=== PATIENT | female | born 1945 | race Caucasian/White ===

== ENCOUNTER 2017-07-17 13:28 | Inpatient (IN) | payer MEDICARE, SELFPAY ==
[~2017-07-17] VITALS: Ht 152.4 cm; Wt 99.3 kg
[~2017-07-17 13:28] MED LIST: CIPRO500 MG PO; LISINOPRIL-HCT1 EAC1 PO; METRONIDAZOLE500 MG PO; OXYBUTYNIN CHLOR5 MG PO
[2017-08-25] MEDS ORDERED: TYLENOL325 MG PO (11:21)
[2017-08-25] MEDS ORDERED: CODEINE SULFATE15 MG PO (11:21)
[2017-08-25] MEDS ORDERED: LOPERAMIDE2 M1 PO (11:21)
[2017-08-25] MEDS ORDERED: LASIX20 MG PO (11:22)
[2017-08-25] MEDS ORDERED: LISINOPRIL20 MG PO (11:22)
[2017-08-25] MEDS ORDERED: OXYBUTYNIN CHLOR5 MG PO (11:22)
[2017-08-25] MEDS ORDERED: POTASSIUM20 MEQ/15 PO (11:23)
--- NOTE | 2017-08-31 11:01 | OR ---
[facility] [address] [place], [place] [address] Signed DATE OF OPERATION: 08/31/2017 SURGEON: Josey Alberto MD PREOPERATIVE DIAGNOSIS: Degenerative joint disease, right knee. POSTOPERATIVE DIAGNOSIS: Degenerative joint disease, right knee. PROCEDURE PERFORMED: Right total knee arthroplasty with computer navigation. HAM BONER: KRYSTINA Newman was present in critical for positioning, retraction, and wound closure. ANESTHESIA: General. TOURNIQUET TIME: Approximately 66 minutes. IMPLANTS: [place] Triathlon size 4 femur, size 3 tibia, 16 mm insert, and 32 mm patella. BRIEF HISTORY: Joshua is a 72-year-old female with progressive worsening of arthritis that was significantly erosive medially. Risks and benefits of operative treatment were discussed with her. DESCRIPTION OF PROCEDURE: Once medical clearance was obtained, she was taken to the operating room. After adequate anesthesia, the par conference was performed. The right leg was placed in well padded proximal thigh tourniquet placed on the hip bump. The leg was prepped and draped in a standard sterile fashion and exsanguinated using Esmarch bandage. Tourniquet was inflated to 300 mmHg. Standard anterior approach was taken through the skin and subcutaneous tissue, and median parapatellar arthrotomy was performed. The infrapatellar fat pad was excised and the MCL was elevated to sleeve around the Electronically Signed By: JOSEY ALBERTO MD 08/31/17 1101 PATIENT NAME: JOSHUA LEWIS OPERATIVE REPORT DATE OF : 49 PHYSICIAN: JOSEY ALBERTO MD REPORT #: [id number] REPORT IS CONFIDENTIAL AND NOT TO BE RELEASED WITHOUT AUTHORIZATION [facility] [address] [place], [place] [address] Signed posterior medial corner. The menisci were removed. The PCL was found to be intact and the ACL was absent. The knee was flexed. The navigation guide was pinned to the distal femur and the femur was registered with the computer. The distal femoral cutting guide was then pinned in neutral alignment and the distal femoral cut was made. The osteophytes were removed. The femoral rotation was set on the epicondylar axis and the AP cutting block was pinned in alignment. The anterior-posterior and chamfer cuts were made. The attention was turned to proximal femur and the navigation guide was pinned and again the tibia was registered with the computer. The cutting block was then pinned in neutral alignment and the proximal tibia was cut to take about a millimeter off the medial surface. There was still a fairly large cut laterally. The bone was excised as were any meniscal remnants. Posterior release was performed off the femur. Posterior osteophytes removed. The flexion and extension gaps were sized and found to be symmetric at 16 mm. The trials were positioned. Knee was taken through range of motion and found to be stable. The patella was cut, sized, and drilled for a 32 patella. The trials were removed after drilling the femur. The tibia was then finished using the keel punch. The bone surfaces were pulse lavaged, packed with dry Ray-Jodi. The cement was mixed and reached proper consistency, and placed on all implants and all bone surfaces. Tibia was impacted in position first followed by the femur. Polyethylene was placed on the tibia and the knee was extended and nicely loaded. All excess cement was removed as we went. The patella was clamped into position. Again, all excess cement was removed. The cement was allowed to harden for 15 minutes. The knee was then flexed and the remaining cement was removed using osteotomes. The knee was pulse lavaged at intervals throughout the procedure using 3 L of antibiotic irrigation. The periarticular soft tissues were injected with 100 mL of ropivacaine and Toradol mixture. The arthrotomy was then closed using #2 Stratafix, subcutaneous tissue with 2-0 Monocryl and 0 Stratafix, and skin with carlos. Wound was dressed with Mepilex Ag dressing, ABD, and Adi wrap. She was awakened and taken to recovery room in satisfactory condition. All sponge, needle, and instrument counts were correct. Josey Alberto MD BA/MODL /[id number] Electronically Signed By: JOSEY ALBERTO MD 08/31/17 1101 PATIENT NAME: JOSHUA LEWIS OPERATIVE REPORT DATE OF : 49 PHYSICIAN: JOSEY ALBERTO MD REPORT #: [id number] REPORT IS CONFIDENTIAL AND NOT TO BE RELEASED WITHOUT AUTHORIZATION
[2017-09-01] MEDS ORDERED: MUPIROCIN22 GM TOP (10:07)
[2017-09-01] MEDS ORDERED: BACTRIM DS TAB1 EACH PO (10:07)
[2017-09-01] MEDS ORDERED: CENTRUM SILVER1 EAC3 PO (10:22)
[2017-09-04] MEDS ORDERED: HYDROMORPHONE HC4 MG PO (07:39)
[2017-09-04] MEDS ORDERED: XARELTO10 MG PO (07:39)
[2017-09-04] MEDS ORDERED: OXYCODONE HCL5 MG PO (07:39)
--- NOTE | 2017-09-04 14:45 | DS ---
[facility] [address] [place], [place] [address] Signed ADMISSION DATE: 08/31/2017 DISCHARGE DATE: 09/04/2017 ADMISSION DIAGNOSIS: Degenerative joint disease, right knee. DISCHARGE DIAGNOSES: 1. Degenerative joint disease, right knee. 2. Postoperative hyponatremia. PROCEDURE PERFORMED: During this hospitalization, right total knee replacement. BRIEF HISTORY: Joshua is a 72-year-old female with progressive worsening of severe arthritis and erosion. Risks, benefits and alternatives to the surgery were discussed with her and she elected to proceed. Once consent was obtained, she was taken to the operating room and after adequate anesthesia, she underwent the above-named procedure. She tolerated this well and was taken to the recovery room and subsequently to the orthopedic floor. She was placed on oxycodone and hydromorphone for postoperative pain in addition to Tylenol. She was initially placed on Celebrex, however, when her hyponatremia became apparent, the Celebrex was stopped. She had good pain relief on the above medications. She was seen by Physical Therapy and although a little bit slow in the beginning to progression, she did do quite well after that. She was able to go up and down the hallway and up and down the stairs by the day of discharge. She is able to get herself in and out of bed with minimal assist. She was felt to be stable to go home with physical therapy on an outpatient basis. The hyponatremia resolved with fluid restrictions and was almost normalized by the day of discharge. She will need to follow up with Dr. Douglass for the hyponatremia in the next couple of weeks I suspect. I did advise her to restrict her p.o. water intake while at home until she sees Dr. Douglass. She will follow up with me in 10-14 days as previously scheduled. Should she have any problems or interruption, notify me immediately. Josey Alberto MD /MOD /[id number] Electronically Signed By: JOSEY ALBERTO MD 09/04/17 1445 PATIENT NAME: JOSHUA LEWIS DISCHARGE SUMMARY DATE OF : 49 PHYSICIAN: JOSEY ALBERTO MD REPORT #: [id number] REPORT IS CONFIDENTIAL AND NOT TO BE RELEASED WITHOUT AUTHORIZATION [address] [place] [address] Signed Electronically Signed By: JOSEY ALBERTO MD 09/04/17 1445 PATIENT NAME: JOSHUA LEWIS DISCHARGE SUMMARY DATE OF : 49 PHYSICIAN: JOSEY ALBERTO MD REPORT #: [id number] REPORT IS CONFIDENTIAL AND NOT TO BE RELEASED WITHOUT AUTHORIZATION
== END 2017-09-04 11:30 | disposition home or self-care (01) | DRG 470 ==
LOC: MS 08-31 05:45 → DSVR 08-31 05:45 → MS 08-31 06:45
PROVIDERS: ADMIT Specialist
PROC: 3E0T3BZ Introduction of Anesthetic Agent into Peripheral Nerves and Plexi, Percutaneous Approach (ICD-10-PCS; 2017-08-31)
PROC: 3E0T33Z Introduction of Anti-inflammatory into Peripheral Nerves and Plexi, Percutaneous Approach (ICD-10-PCS; 2017-08-31)
PROC: 0SRC0J9 Replacement of Right Knee Joint with Synthetic Substitute, Cemented, Open Approach (ICD-10-PCS; principal; 2017-08-31 06:45)
DX: M17.11 Unilateral primary osteoarthritis, right knee (principal); E87.1 Hypo-osmolality and hyponatremia; N39.0 Urinary tract infection, site not specified; G89.18 Other acute postprocedural pain; B96.20 Unspecified Escherichia coli [E. coli] as the cause of diseases classified elsewhere; I10 Essential (primary) hypertension; Z88.0 Allergy status to penicillin
CPT/HCPCS: 01402; 36415; 64447; 64450; 76942; 80048; 83880; 83930; 83935; 84133; 84300; 84550; 85025; 94640; 94667; 94668; 94760; 97110; 97116; 97162; 97165; 97530; 97535; C1713; C1776; G8978; G8979; G8987; G8988; J0330; J0690; J1100; J1170; J2250; J2274; J2704; J2795; J3010; J3370; J7030; J7120

== ENCOUNTER 2017-12-21 06:55 | Inpatient (IN) | payer MEDICARE, OTHER ==
--- NOTE | 2017-12-07 14:32 | NUR ---
PATIENT HERE TODAY FOR PREADMIT APPOINTMENT. SHE IS SCHEDULED FOR SURGERY ON 12/21/17. SHE STATES SHE HAD A JOINT REPLACMENT IN AUGUST AND STILL HAS HER WALKER, CANE AND SHOWER BENCH. HER DAUGHTER WAS WITH HER TODAY AND STATES SHE WILL BE STAYING WITH THEM AGAIN AFTER SURGERY. SHE JUST FINISHED WITH PHYSICAL THERAPY AND WOULD LIKE TO GO BACK TO THE [facility] AFTER THIS SURGERY. THIS INFORMATION WILL BE SENT TO DR GARCIA OFFICE AND CT PLANNING FOR FURTHER FOLLOW UP.
[~2017-12-21] VITALS: Ht 152.4 cm; Wt 107.0 kg
[~2017-12-21 06:55] MED LIST changes: +BACTRIM DS TAB1 EACH PO; +CENTRUM SILVER1 EAC3 PO; +CODEINE SULFATE15 MG PO; +HYDROMORPHONE HC4 MG PO; +LASIX20 MG PO; +LISINOPRIL20 MG PO; +LOPERAMIDE2 M1 PO; +MUPIROCIN22 GM TOP; +OXYCODONE HCL5 MG PO; +POTASSIUM20 MEQ/15 PO; +TYLENOL325 MG PO; +XARELTO10 MG PO
--- NOTE | 2017-12-21 11:18 | NUR ---
12/21/17 1118 Madeline Mcknight 1037 PT ARRIVED SNORING WITH SEE-SAW BREATHING. POLICY CHANGE CLERKS SUPERVISOR PLACED ORAL AIRWAY. SNORING STOPPED. PT ON 10L VIA MASK. PT NONAROUSABLE. 1049 PT WOKE UP AND ORAL AIRWAY REMOVED, O2 DECREASED TO 8L VIA MASK. PT ENCOURAGED TO DEEP BREATH. 1100 PT TALKING OFF AND ON, PT VERY DROWSY AND CONFUSED. PT REORIENTED TO PACU. PT OPENED EYES OFF AND ON. O2 DECREASED TO 6L VIA MASK, 1105 O2 MASK REMOVED. [address] ON PT AT 2L, O2 SAT DECREASED TO 90% ON RA. PT LESS CONFUSED AND DEEP BREATHING AND TRYING TO COUGH.
--- NOTE | 2017-12-21 12:39 | NUR ---
PT ARRIVED FROM PACU. PT DROWSY BUT RESPONDING TO QUESTIONS. PT DAUGHTER AT BEDSIDE. SCD'S, ЕЛЕНА HOSE, HEEL PROTECTORS, CRYO CUFF IN PLACE. PT DENIES NAUSEA. PT NODS YES TO WHEN ASKED IF SHE HAS PAIN BUT IMMIDIALY FALLS BACK TO SLEEP, RR = 16, AND IS UNABLE TO STATE WHERE OR GIVE A PAIN SCORE. PT APPEARS COMFORTABLE AT THIS TIME. VITALS TAKEN. MD NOTIFIED OF BLOOD PRESSURE STATUS. PT DAUGHTER UPDATED ON PLAN OF CARE. BED RAILSUP. CALL LIGHT WITHIN REACH.
--- NOTE | 2017-12-21 13:10 | NUR ---
VITALS DUE. VITALS TAKEN. PT CONTINUES TO BE DROWSY. MEDICATION GIVEN ORDERED (SEE MAR), PHARMACIST CONSULTED REGARDING RATE AND FLUSHING. BED RAILS UP. CALL LIGHT WITH IN REACH. BED RAILS UP.
--- NOTE | 2017-12-21 14:06 | NUR ---
PT IN RM, WITH CRYOCUFF ON, SLEEPING. DID NOT WANT TO DISTURB. WILL CONTINUE TO FOLLOW NEEDED
--- NOTE | 2017-12-21 14:24 | NUR ---
PT AWAKENS TO TOUCH AND SOUND FOR SMALL DURATION AND FALLS BACK ASLEEP. O2 95% ON 2L 02 VIA NC.
[2017-12-21] MEDS ORDERED: NARCAN4 MG NAS (15:03)
--- NOTE | 2017-12-21 15:15 | NUR ---
THIS RN TO ROOM FOR VITALS AND MEDICATIONS. PT WORKING WITH PHYSICAL THERAPY. PHYSICAL THERAPIST AND 2 RN ASSIST HELP PT TO COMODE. PT ABLE TO VOID. PT HAVING DIFFICULTY FOLLOWING COMMANDS, STILL VERY DROWSY, COMPLAINTS OF DIZZINESS. FALLS ASLEEP QUICKLY. PT BECOMS NAUSEAOUS WHILE MOVING, BEGINS TO VOMIT. MD CALLED. TELEPHONE ORDER FOR ZOFRAN GIVEN. ZOFRAN GIVEN TO PT. LINENS CHANGED. PT ASSISTED BACK TO BED. DEPENDS IN PLACE. MEDICATIONS GIVEN. ASSESSMENT DONE. PTS DAUGHTER TO BEDSIDE (WITH DOG FROM HOME). PT AND DAUGHTER VERBALIZE UNDERSTANDING. VITALS TAKEN. MD NOTIFIED OF CONTINUED HIGH BLOOD PRESSURE. BED RAILS UP. CALL LIGHT WITHIN REACH.
--- NOTE | 2017-12-21 16:16 | NUR ---
PATIENT RESTING IN BED WITH EYES CLOSED. FRESH ICE WATER GIVEN. ICE IN CRYO. CALL BUTTON IN REACH.
--- NOTE | 2017-12-21 16:57 | NUR ---
MEDICATION AND AFTERNOON ASSESSMENT DUE. THIS RN TO BEDSIDE. PT RESTING WITH EYES CLOSED, RR = 18 BPM. PT AWAKENS TO VOICE AND GENTAL SHAKE. PT ABLE TO TAKE MEDICATION (SEE MAR). PT IS UPSET ABOUT BEING "SO SLEEPY, I WASN'T LIKE THIS LAST TIME." ASSESSMENT DONE. PT FALLS IMMIDATLY BACK TO SLEEP, RR = 18 BPM. BED RAILS UP. CALL LIGTH WITHIN REACH.
--- NOTE | 2017-12-21 17:14 | OR ---
[facility] [address] [place], [place] [address] Signed DATE OF OPERATION: 12/21/2017 SURGEON: Josey Alberto MD PREOPERATIVE DIAGNOSIS: Degenerative joint disease, left knee. POSTOPERATIVE DIAGNOSIS: Degenerative joint disease, left knee. PROCEDURE PERFORMED: Left total knee arthroplasty with computer navigation. PLASTIC SURGERY MANAGER: None. TOURNIQUET TIME: 70 minutes. ANESTHESIA: General with block. IMPLANTS: [place] Triathlon size 4 femur, 3 tibia, 11 mm insert, and 32 patella. 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 She had undergone successful right total knee and wished to proceed with the left. Risks and benefits of operative treatment were discussed with her and she elected to proceed. DESCRIPTION OF PROCEDURE: Once consent was obtained, she was taken to the operating room. After adequate anesthesia, she was placed on operating table. All downside pressure points well padded. The leg was prepped and draped in a standard sterile fashion and exsanguinated using Esmarch bandage and tourniquet inflated to 275 mmHg. Standard anterior approach through curved incision was taken through skin and subcutaneous tissue. Median parapatellar arthrotomy was performed. The infrapatellar fat pad was excised and the MCL was elevated of a sleeve around the posterior medial corner. There were extensive tibial osteophytes that were removed as well. The knee was flexed. Navigation guide was pinned to the distal femur. The femur was registered with the computer. The distal Electronically Signed By: JOSEY ALBERTO MD 12/21/17 1714 PATIENT NAME: JOSHUA LEWIS OPERATIVE REPORT DATE OF : 49 REPORT #: [id number] PHYSICIAN: JOSEY ALBERTO MD PCP: JOSE M MCLEAN MD REPORT IS CONFIDENTIAL AND NOT TO BE RELEASED WITHOUT AUTHORIZATION [facility] [address] [place], [place] [address] Signed femoral cut was then made in neutral alignment. The osteophytes were removed as we went. At this point, the [id number] cutting block was dropped and had to be re-sterilized, so we went on to the tibia. The navigation guide was pinned to the tibia and the tibia was registered with the computer. The cutting block was then pinned in alignment with most involved posteromedial corner and neutral alignment. The tibial cut was made with care taken to protect the patellar tendon and MCL. The bone was removed as were any meniscal remnants. Posterior release performed off the femur. Posterior osteophytes removed. We then cut, sized, and drilled the patella for a 32 mm patella. By this point, the block was appropriately sterilized and we went ahead and aligned with the epicondylar axis and performed the anterior, posterior, and chamfer cuts. The flexion and extension gaps were sized and found to be symmetric at 11 mm. The trials were then positioned. Knee was taken through range of motion and found to be quite stable. The femoral drill holes were made and the tibial keel punch was made and the bone surfaces were pulse lavaged, packed with dry Ray-Jodi. Cement was mixed and reached proper consistency, displaced all implants on bone surfaces. Tibia was impacted into position first followed by the femur and all excess cement was removed. The polyethylene was snapped into position. Knee was extended and nicely loaded. The patella was clamped and again any remaining excess was removed. The cement was allowed to harden. Once it was hardened sufficiently, the knee was flexed. The remaining cement was removed using osteotomes. The knee showed a range of motion 0-105 degrees of flexion. This represented thigh-heel impingement. The wound was copiously irrigated with antibiotic solution. 3 L was used under pulse lavage. The periarticular soft tissues were injected with 100 mL ropivacaine, Toradol mixture. The arthrotomy was closed using #2 Stratafix. Subcutaneous tissue with 0 Stratafix, and skin with carols. The knee was dressed with a Mepilex Ag dressing, ABD, and Adi wrap. She was awakened and taken to recovery room in satisfactory condition. All sponge, needle, and instrument counts were correct. Josey Alberto MD BA/MODL /[id number] Copies: Electronically Signed By: JOSEY ALBERTO MD 12/21/17 1714 PATIENT NAME: JOSHUA LEWIS OPERATIVE REPORT DATE OF : 49 REPORT #: [id number] PHYSICIAN: JOSEY ALBERTO MD PCP: JOSE M MCLEAN MD REPORT IS CONFIDENTIAL AND NOT TO BE RELEASED WITHOUT AUTHORIZATION [address] [address] Signed ~ Electronically Signed By: JOSEY ALBERTO MD 12/21/17 1714 PATIENT NAME: JOSHUA LEWIS OPERATIVE REPORT DATE OF : 49 REPORT #: [id number] PHYSICIAN: JOSEY ALBERTO MD PCP: JOSE M MCLEAN MD REPORT IS CONFIDENTIAL AND NOT TO BE RELEASED WITHOUT AUTHORIZATION
--- NOTE | 2017-12-21 17:34 | NUR ---
PT ARRIVED AT 1210 TODAY POST OP LEFT TKA. PT DECLINED SPINAL. KETAMINE GIVEN, SOME POST OP DELERIUM. PT REMAINS DROWSY. AWAKES TO VOICE AND GENTAL SHAKING. ELEVATED BP, HOSPITALIST AWARE, LOBETOLOL AND HYDRALAZINE GIVEN. BRET SCHEDULED FOR THIS EVENING. PT UP TO COMODE WITH PT AND 2 RN ASSIST TODAY. DEPENDS IN PLACE. NOT USING CALL LIGHT AT THIS TIME.
--- NOTE | 2017-12-21 17:35 | NUR ---
PATIENT RESTING IN BED WITH EYES CLOSED. FRESH ICE WATER GIVEN. CALL BUTTON IN REACH. ICE IN CRYO.
--- NOTE | 2017-12-21 19:56 | NUR ---
RECEIVED REPORT FROM DAY SHIFT RN. PATIENT IS RESTING IN BED WITH EYES CLOSED. PATIENT IS VERY SLEEPY. PATIENT AWKANES SLIGHTLY AND FALLS BACK ASLEEP EASILY. NO PAIN NOTED. CALL LIGHT IN REACH. BED ALARM ON FOR SAFETY.
--- NOTE | 2017-12-21 20:15 | NUR ---
PLACED A CALL TO DR GARCIA TO EXPRESS CONCERN ABOUT PATIENT BEING DROWSY. NO NEW ORDERS AT THIS TIME. CONTINUE TO MONITOR.
--- NOTE | 2017-12-21 20:40 | NUR ---
PATIENT ASSESMENT COMPLETED. PATIENTS EVENING MEDICATIONS GIVEN PER ORDER. PATIENT DENIES ANY PAIN AT THIS TIME. PATIENT IS VERY DROWSY. REQUIRES MULTIPLE TIMES OF HER NAME BEING CALLED TO RESPOND TO QUESTIONING. PATIENT ASSISTED TO THE BSC A 2PA W/FWW. PATIENT REQUIRED FREQUENT REMINDERS. PATIENT WAS ABLE TO VOID AND WAS INCONTINENT. PATIENT IS BACK IN BED RESTING. PATIENT HAS SCDS, HEEL PROTECTORS, TEDHOSE AND CRYO IN PLACE. CRYO REFILLED WITH ICE. PATIENT APPEARS TO BE MORE AWAKE AFTER ACTIVITY. PATIENT DENIES PAIN AFTER MOVEMENT. PATIENT IS VERY UPSET ABOUT BEING SO SLEEPY. EDUCATED PATIENT THAT IT IS A SIDE AFFECT AFTER SURGERY. PATIENT STATED "THIS DID NOT HAPPEN LAST TIME" PATIENT REASSURED THAT SHE WAS BEING CLOSELY MONITORED. PATIENT GIVEN JELLO PER REQUEST. NO FURTHER NEEDS NOTED. BED ALARM ON FOR SAFETY. DRESSING C/D/I. CALL LIGHT IN REACH.
--- NOTE | 2017-12-21 22:08 | NUR ---
PATIENT WAS ABLE TO EAT JELLO X1 BEFORE FALLING BACK ASLEEP. PATIENT TITRATED TO 1.5L VIA NC. PULSE OX READINGS ARE WNL. PATIENT AWOKEN TO ASK ABOUT NEEDS. PATIENT SHOOOK HER HEAD NO. CALL LIGHT IN REACH. BED ALARM ON FOR SAFETY.
--- NOTE | 2017-12-21 23:56 | NUR ---
PATIENT IS RESTING IN BED WITH EYES CLOSED. RR 15. BREATHING IS EVEN AND UNLABORED. PATIENT IS ON 1.5L VIA NC. TEDHOSE, CRYO, SCDS, AND HEEL PROTECTORS IN PLACE. CRYO HAS SUFFICIENT ICE. BED ALRM IS ON AND CALL LIGHT IN REACH.
--- NOTE | 2017-12-22 02:18 | NUR ---
PATIENT AWOKE FOR 0200 VITALS. PATIENT ASSISTED TO THE BSC A 2PA W/FWW. PATIENT IS SLOW WITH MOVEMENT BUT TOLERATED ACTIVITY WELL. PATIENT IS UPSET ABOUT BEING SO SLEEPY. PATIENT KEEPS ASKING "WHAT HAPPENED TO ME". PATIENT EDUCATED THAT THE MEDICATION THE USE TO SEDATE YOU FOR SURGERY CAN MAKE YOU SLEEPY AND CAN TAKE A WHILE TO GET OUT OF YOUR SYSTEM. PATIENT STATES "IT WASNT LIKE THIS LAST TIME, SOMEONE DID SOMETHING TO ME". ASSURED PATIENT THAT SHE IS SAFE. PATIENT ASKED TO HAVE SOMETHING TO EAT. PATIENT OFFERED JELLO AND BROTH SHE IS STILL ON A CLEAR DIET AND STAFF HAS NOT BEEN ABLE TO ADVANCE HER DIET SHE HAS BEEN SO DROWSY. PATIENT HAS ONLY EATEN ONE CUP OF JELLO. PATIENT STATED "LAST TIME WHEN I WOKE UP I HAD MILK AND COOKIES" ASSURED PATIENT THAT WE WHERE FOLLOWING THE DRS ORDERS. PATIENT GIVEN MORE JELLO. PATIENT EDUCATED THAT IF SHE WAS ABLE TO TOLERATE JELLO AND STAY AWAKE THAT STAFF WOULD BE ABLE TO ADVACE HER DIET. PATIENT VERBALIZED UNDERSTANDING. NO FURTHER NEEDS NOTED. CALL LIGHT IN REACH.
--- NOTE | 2017-12-22 04:33 | NUR ---
YPATIENT IS RESTING IN BED. PATIENTS BREATHING IS EVEN AND UNLABORED, RR 15. PULSE OX READINGS ARE WNL. CALL LIGHT IN REACH. BED ALARM IS ON.
--- NOTE | 2017-12-22 05:18 | NUR ---
PATIENT RESTED WELL THROUGHOUT THE SHIFT. PATIENTS DIET WAS ADVANCED TO REGULAR, NO NAUSEA NOTED. PATIENT IS A 2PA W/FWW TO [facility]. PAITENTS OUPUT IS QS. PATIENT HAS TEDHOSE, HEEL PROTECTORS AND SCDS TO BILAT LOWER EXT. PATIENT HAS CRYO APPLIED TO LEFT KNEE. PATIENT IS ON RA, PULSE OX IN PLACE. PATIENTS DRESSING IS C/D/I, SMALL DRAINAGE NOTED. PATIENT REMAINS DROWSY, EASY TO AWAKEN. PATIENT USES CALL LIGHT APPROPRIATELY. PATIENTS BED ALARM IS ON FOR SAFETY. PATIENT IS AAOX3 WHEN AWAKE. NO PAIN NOTED.
--- NOTE | 2017-12-22 05:58 | NUR ---
PATIENT ASSISTED TO [place] [facility] [place]. PATIENT WAS ABLE TO VOID AND HAD A BOUT OF INCONTINENCE. PATIENT IS NOW IN RECLINER RESTING. PATIENT HAS SCDS, TEDHOSE, AND HEEL PROTECTORS IN PLACE. PATIENTS RATES PAIN AT A 1/10. PATIENT DENIES THE NEED FOR PAIN MEDICATION. PATIENT GIVEN SCHEDULED 0600 MEDICATIONS PER ORDER. PATIENTS DIET IS ADVANCED TO REGULAR DIET. PATIENTS CRYO REFILLED WITH ICE. PATIENT IS MORE AWAKE THIS AM. PATIENT STILL FALLS ASLEEP EASILY. IN DEPTH CONVERSATION IS ABLE TO BE HELD WITH PATIENT. PATIENT IS AAOX3. PATIENT DENIES ANY FURTHER NEEDS. CALL LIGHT IN REACH.
--- NOTE | 2017-12-22 07:38 | NUR ---
MORNING ASSESSMENT AND MEDICATIONS DUE. THIS RN TO ROOM. PT UP TO CHAIR. RESTING WITH EYES CLOSED RR = 16 BPM. PT AWAKES TO VOICE AND GENTAL TOUCH. PT STATES "WHY AM I SO SLEEPY. I DON'T LIKE THIS." AND DRIFTS BACK TO SLEEP. VITALS TAKEN. PT AWAKENED AGAIN FOR ASSESSMENT. PT ABLE TO ANSWER QUESTIONS AND FOLLOW SOME COMMANDS. DRESSING SHOWS SMALL AMOUNT OF SHADOWING ON MEPLEX. OFELIA WRAP CDI. CRY CUFF, HEEL PROTECTORS, SCDS, AND PULSE OX IN PLACE. MEDICATIONS GIVEN (SEE MAR). PT STATES SHE HAS NO REQUESTS OR COMPLAINTS AT THIS TIME. CALL LIGHT WITHIN REACH.
--- NOTE | 2017-12-22 07:52 | NUR ---
PATIENT SITTING UP IN CHAIR WITH EYES CLOSED. RN IN ROOM TO PASS MEDS. NO OTHER NEEDS AT THIS TIME.
--- NOTE | 2017-12-22 08:41 | NUR ---
this rn called to room by physical therapy. PHYSICAL THERAPIST ASKS FOR SALINE LOCK FOR AMBULATION. FLUIDS DC'D. PIV SALINE LOCKED. ALCOHOL CAP APPLIED. PT UPSET ABOUT "FEELING SO SLEEPY." EDUCATION DONE R/T THE DIFFERENCE BETWEEN GENERAL ANESTHESIA AND SPINAL ANESTHESIA. PT CONTINUES TO STATE "I DON'T LIKE THIS AND I DONT' UNDERSTAND WHY I'M SO SLEEPY." EDUCATION REINFORCED X4. PT NOW WORKING WITH PHYSICAL THERAPIST.
--- NOTE | 2017-12-22 09:30 | NUR ---
THIS RN TO CHECK ON PT AFTER PHYSICAL THERAPY. PT DENIES PAIN AND NAUSEA. CRYO CUFF REPLACED TO KNEE. LEGS ELEVATED AT THIS TIME. SCD'S AND ЕЛЕНА HOSE IN PLACE. PTS DAUGHTER AT BEDSIDE. PT LOOKING AT MENU FOR LUNCH ORDERS. NO REQUESTS OR COMPLAINTS AT THIS TIME. CALL LIGHT WITHIN REACH.
--- NOTE | 2017-12-22 10:05 | NUR ---
PT CALL LIGHT ON. PT REPORTS 02/16 PAIN. SEE MAR FOR MEDICATION GIVEN. PT DOING PHYSICAL THERAPY EXERCISES. CRYO CUFF IN PLACE. CALL LIGHT WITHIN REACH.
--- NOTE | 2017-12-22 11:03 | NUR ---
THIS RN TO ROOM TO CHECK ON PT. PT DENIES PAIN AND NAUSEA. PT STATES SHE IS "DOING MY EXERCISES FROM PHYSICAL THERAPY." CRYO CUFF IN PLACE. CALL LIGHT WITHIN REACH.
--- NOTE | 2017-12-22 11:14 | NUR ---
FOCUSED ASSESSMENT DUE. THIS RN TO BEDSIDE. PT UP IN CHAIR, DOING EXERCISES FROM PHYSICAL THERAPY. PT REPORTS PAIN OF 1/10 AND DENIES NAUSEA. ASSESSMENT DONE. PT REQUESTS COFFEE. GIVEN REQUESTED. PT ANTICIPATING LUNCH AND WORK WITH PHYSICAL THERAPY THIS AFTERNOON. NO ADDITIONAL REQUESTS OR COMPLAINTS AT THIS TIME. CALL LIGHT WITHIN REACH.
--- NOTE | 2017-12-22 11:34 | NUR ---
MED REC COMPLETE
--- NOTE | 2017-12-22 11:53 | NUR ---
RN IN ROOM
--- NOTE | 2017-12-22 12:34 | NUR ---
MEDICATION DUE. THIS RN TO BEDSIDE. PT UP IN CHAIR WATCHING TV. PT REQUESTS ASSISTANCE UP TO RESTROOM. 1P SBA WITH FWW TO COMODE. PT ASSISTED BACK TO CHAIR. CRYO CUFF REAPLIED, SCD'S RUNNING. PT REPORTS 5/10 PAIN WHILE MOVING AND 0/10 PAIN WHEN SITTING. VITALS TAKEN. MEDICATION GIVEN ORDRED. NEW ICE WATER PROVIDED. PT VISITING WITH DAUGHTER. NO REQUESTS OR COMPLAINTS AT THIS TIME. CALL LIGTH WITHIN REACH.
--- NOTE | 2017-12-22 13:21 | NUR ---
PT RESTING IN CHAIR, VISITING WITH DAUGHTER. PT STATED SHE HAS NO PAIN, SEEMED TO NAVIGATE ACCORDING TO HER P.T. OK. WAITING FOR AFTERNOON P.T. STRUGGLING WITH FEELING "SLEEPY" IN HER TERMS. DAUGHTER TRIED TO EXPLAIN TO PT THAT IT IS OK. EXPRESSED BLESSING TO PT, WILL CONTINUE TO FOLLOW NEEDED
--- NOTE | 2017-12-22 14:02 | NUR ---
MD AT BEDSIDE. THIS RN TO ROOM TO PARTICIPATE IN ROUNDS. PT TALKING WITH MD ABOUT BLOOD PRESSURE. WATER REFILLED. ICE IN CRYO CUFF REFILLED. SCHEDULED TYLENOL GIVEN. PT DENIES PAIN AND NAUSEA. CALL LIGHT WITHIN REACH.
--- NOTE | 2017-12-22 15:13 | NUR ---
PT CALL LIGHT ON. PT FINISHED IN RESTROOM. ABLE TO VOID 700ML WITHOUT INCIDENT. NEW DEPENDS PLACED. PT BACK TO CHAIR. MEDICATION GIVEN (SEE MAR). PT WORKING ON INCENTIVE SPIROMETER. NO ADDITIONAL REQUESTS OR COMPLAINTS. CALL LIGTH WITHIN REACH.
--- NOTE | 2017-12-22 15:15 | NUR ---
PATIENT SITTING UP IN CHAIR. RN IN ROOM. CALL LIGHT WITHIN REACH. NO OTHER NEEDS AT THIS TIME.
--- NOTE | 2017-12-22 16:16 | NUR ---
AFTERNOON ASSESSMENT DUE. THIS RN TO BEDSIDE. PT UP IN CHAIR WATCHING TV AND ANTICIPATING HER SON'S VISIT. ASSESSMENT DONE. PT DENIES PAIN AND NAUSEA. PT STATES SHE HAS NO REQUESTS OR COMPLAINTS AT THIS TIME. CALL LIGHT WITHIN REACH.
--- NOTE | 2017-12-22 16:39 | NUR ---
PT CALL LIGHT ON. PT REQUESTS PAIN MEDICATION FOR 5/10 PAIN. SEE MAR FOR MEDICATIONS GIVEN. PT UP IN CHAIR WATCHING TV. NO ADDITIONAL REQUESTS OR COMPLAINTS AT THIS TIME. CALL LIGHT WITHIN REACH.
--- NOTE | 2017-12-22 17:39 | NUR ---
PT 1ST DAY POST L TKA. 1P STAND BY ASSIST WITH FWW. PIV NOW SL. DRESING CDI WITH SMALL AMOUNT OF SHADOWING ON MEPLEX. REGULAR DIET. PRN PAIN MEDICATION FOR 5/10 PAIN. PT UP WITH PHYSICAL THERAPY X2 TODAY. HYDRALAZINE DC'D TODAY, MONITORING BLOOD PRESSURES. PT AWAKE AND ALERT TODAY. USING CALL LIGHT APPROPRIATLY.
--- NOTE | 2017-12-22 19:38 | NUR ---
RECEIVED REPORT FROM DAY SHIFT RN. PATIENT ASSISTED TO THE RESTROOM A SBA W/FWW. PATIENT TOELRATED ACTIVITY WELL. PATIENT IS BACK IN RECLINER RESTING. PATIENT HAS TEDHOSE, SCDS, HEEL PROTECTORS IN PLACE. PATIENTS CRYO HAS SUFFICIENT ICE AND IS APPLIED TO HER LEFT KNEE. PATIENT RATES PAIN AT A 1/10. PATIENT DENIES THE NEED FOR PAIN MEDICATION. CALL LIGHT IN REACH. AAOX3.
--- NOTE | 2017-12-22 19:59 | NUR ---
PATIENT SITTING UP IN CHAIR. FAMILY MEMBERS IN ROOM. GARBAGE EMPTIED. CALL LIGHT WITHIN REACH. FRESH ICE WATER. ICE IN CRYO. NO OTHER NEEDS AT THIS TIME.
--- NOTE | 2017-12-22 20:15 | NUR ---
PATIENT ASSESMENT COMPLETED. PATIENTS EVENING MEDICATIONS GIVEN PER ORDER. PATIENT DENIES ANY PAIN AT REST, BUT STATED IT CAN BE A FIVE WITH MOEVEMENT. PATIENTS VITALS TAKEN AND RECORDED. PATIENT ASSISTED TO THE RESTROOM A 1PA W/FWW. PATIENT WAS ABLE TO VOID. PATIENT IS NOW BACK IN RECLINER RESTING. PATIENT HAS SCDS, TEDHOSE, HEEL PROTECTORS IN PLACE. PATIENT HAS CRYO APPLIED TO LEFT KNEE. PATIENT TOLERATED AMBUALTION WELL. PATIENT HAS A SMALL AMOUNT OF DRAINAGE NOTED THAT IS UNCHANGED FROM PREVIOUS SHIFT. PATIENT DENIES THE NEED FOR PRN PAIN MEDICATION AT THIS TIME. PATIENT IS AAOX3. PATIENT DENIES ANY FURTHER NEEDS. SCOPALIMINE PATCH PRESENT BEHIND LEFT EAR. CALL LIGHT IN REACH.
--- NOTE | 2017-12-22 21:20 | NUR ---
PATIENT GIVEN SHCEDULE MEDICATION PER ORDER. PATIENT ALSO GIVEN PRN PAIN MEDICATION FOR A 3/10 LEFT KNEE PAIN. PATIENT CONTINUES TO REST IN RECLINER. NO FRUTHER NEEDS NOTED. CALL LIGHT IN REACH.
--- NOTE | 2017-12-22 22:19 | NUR ---
PATIENT ASSISTED TO THE RESTROOM A 1PA W/FWW. PATIENT WAS ABLE TO VOID. PATIENT IS NOW IN BED RESTING. PATIENT HAS SCDS, TEDHOSE, AND HEEL PROTECTORS IN PLACE. PATIENTS CRYO HAS SUFFICIENT ICE AND IS APPLIED TO LEFT KNEE. PATIENT DENIES ANY FURTHER NEEDS AT THIS TIME. CALL LIGHT IN REACH. AAOX3.
--- NOTE | 2017-12-22 22:48 | NUR ---
PATIENT CALLED NEED HELP TO GET SOMETHING FROM HER PURSE. THIS DRAPERY MAKER WENT, PATIENT WANTS HER GAMEBOY STATED SHE USED TO PLAY BEFORE BED.
--- NOTE | 2017-12-23 01:08 | NUR ---
ASSISTED PATIENT TO THE BATHROOM AND BACK TO BED WITH WALKER. ICE WATER REFILLED. CALL LIGHT WITHIN REACH.
--- NOTE | 2017-12-23 01:38 | NUR ---
PATIENT IS IN BED RESTING. PATIENT HAS CRYO, TEDHOSE, AND SCDS, IN PLACE. PATIENT DENIES ANY PAIN AT THIS TIME. CALL LIGHT IN REACH. NO NEEDS NOTED. CALL LIGHT IN REACH. AAOX3
--- NOTE | 2017-12-23 03:57 | NUR ---
PATIENT ASSISTED TO THE RESTROOM A SBA W/FWW. PATIENT ABLE TO VOID. PATIENT IS BACK IN BED RESTING. SCDS, TEDHOSE, CRYO, HEEL PROTECTORS IN PLACE. CRYO REFILLED WITH ICE. PATIENT GIVEN PRN PAIN MEDICATION FOR 4/10 PAIN AND BURNING IN HER LEFT KNEE. NO FURTHER NEEDS NOTED. AAOX3. CALL LIGHT IN REACH.
--- NOTE | 2017-12-23 05:15 | NUR ---
PATIENT RESTED WELL FOR THE LATER PART OF THE SHIFT. PATIENT IS ON A REG DIET, TOLERATING WELL, NO NAUSEA NOTED. PATIENT HAS TEDHOSE, SCDS, HEEL PROTECOTRS, AND CRYO IN USE. PATIENT HAS A SMALL AMOUNT OF OLD DRAINGE. PATIENT IS A 1PA W/FWW. PATIENT HAS SCOPE PATCH BEHIND HER LEFT EAR. PATIENT RECEIVED PRN PAIN MEDICATION X2. PATIENT IS AAOX3 AND USES CALL LIGHT APPROPRIATELY. PATIENTS IV IS AL AND FLUSHES WELL.
--- NOTE | 2017-12-23 06:12 | NUR ---
PATIENT ASSISTED TO THE RESTROOM A SBA. PATIENT IS NOW IN THE RECLINER RESTING. PATIENT HAS SCDS, TEDHOSE, HEEL PROTECTORS, AND CRYO IN PLACE. PATIENTS MORNING MEDICATIONS GIVEN PER ORDER. PATIENTS CRYO REFILLED WITH ICE AND ICE WATER REFRESHED. PATIENT IS AAOX3. CALL LIGHT IN REACH. NO FURTHER NEEDS NOTED.
--- NOTE | 2017-12-23 07:51 | NUR ---
REPORT RECEIVED FROM ADELINA RAMON AND SN BARRETO. PT SITTING UP IN CHAIR AO X3. DAUGHTER IN ROOM. SCDS AND HEEL PROTECTORS ADJUSTED. PT DENIES PAIN AT REST. WOULD LIKE TO GO HOME TODAY.
--- NOTE | 2017-12-23 09:51 | NUR ---
PT UP IN CHAIR. BP ELEVATED. DR MINAYA NOTIFIED. MEDS GIVEN. PT RATED PAIN 7/10 GIVEN 2 TABS OXY. CRYO, SCDS, AND ЕЛЕНА HOSE IN PLACE. PT ORDERING LUNCH
--- NOTE | 2017-12-23 10:23 | NUR ---
PT UP TO BATHROOM 1-2PA W/FWW. PT WORKING WITH PHYSICAL THERAPIST CHICHI. DOING EXERCISES. REPORTS PAIN WITH MOVEMENT.
--- NOTE | 2017-12-23 12:33 | NUR ---
PT SITTING UP IN CHAIR. LEGS ELEVATED. CRYO, SCDS, AND ЕЛЕНА HOSE IN PLACE. PT DENIES NEEDS AT THIS TIME.
--- NOTE | 2017-12-23 12:35 | NUR ---
PT SITTING IN CHAIR, SEMI ALERT, STILL NOT SURE WHO I AM AFTER REPEAT VISITS. SAID SHE COULD HAVE GONE HOME TODAY, BUT CAREGIVER ISSUES HAVE CREATED A DILEMA. PT MENTIONED THAT HER BATCH UNLOADER HAS BEEN BY TO SEE HER. EXTENDED A BLESSING, WILL FOLLOW NEEDED
--- NOTE | 2017-12-23 14:26 | NUR ---
PT WALKED IN REYES AND WORKED WITH INSPECTOR CRYSTAL. PT STATES PAIN IS HIGH 7\10. ADMINISTERED SCHEDULED AND PRN MEDS.
--- NOTE | 2017-12-23 14:58 | NUR ---
PT SITTING UP IN CHAIR WITH LEGS ELEVATED. CRYO IN PLACE. ЕЛЕНА WARREN ADJUSTED. SCDS ON. PT WORKED WITH PHYSICAL THERAPY. CURRENTLY RATES PAIN 3/10 NOW THAT THEY ARE BACK RESTING. EATING SNACKS WHILE TALKING WITH DAUGHTER. DENIES OTHER NEEDS AT THIS TIME.
--- NOTE | 2017-12-23 15:52 | NUR ---
PT RESTING WITH EYES CLOSED IN CHAIR. LEGS ELEVATED. RESPIRATIONS EVEN AND UNLABORED.
--- NOTE | 2017-12-23 17:40 | NUR ---
TOOK PT'S BP AFTER STAPLE SHEAR OPERATOR REPORTED IT HIGH. TOOK MANUAL ON LEFT FOREARM. 184\72. DR IN ROOM TO ASSESS. PT DENIES S\S. EATING DINNER INCLUDING FOOD BROUGHT BY DAUGHTER.
--- NOTE | 2017-12-23 17:49 | NUR ---
CALLED DAUGHTER TO ASK HER TO BRING IN BP CUFF SHE USES ON HER MOTHER TO COMPARE TO OURS. DAUGHTER STATED THAT SHE WOULD BRING IT IN THE MORNING.
--- NOTE | 2017-12-23 18:21 | NUR ---
PT WORKED WITH PT X2. TOLERATED WELL. OXY X2 FOR PAIN. CRYO, SCDS, AND ЕЛЕНА HOSE ADJUSTED THROUGHOUT DAY. DRESSING HAD NO NEW DRAINAGE. NICKEL SIZE DRY DRAINAGE NEAR TOP. HYPERTENSIVE. DR MINAYA AWARE. GIVEN NORVASC X1 THIS PM. DAUGHTER TO BRING IN HOME BP CUFF TOMORROW. REGULAR DIET, DAUGHTER BRINGS IN EXTRA FOOD FROM HOME. SL. 1-2PA W/FWW
--- NOTE | 2017-12-23 19:00 | NUR ---
BEDSIDE REPORT RECEIVED FROM DAY SHIFT NURSE. PATIENT RESTING IN RECLINER WATCHING TV. CRYO APPLIED TO LEFT KNEE. TEDHOSE, SCDS, AND HEEL PROTECTORS IN PLACE. PATIENT DENIES ANY OTHER NEEDS AT THIS TIME. AAOX3. BREATHING EVEN AND UNLABORED. CALL LIGHT WITHIN REACH.
--- NOTE | 2017-12-23 20:31 | NUR ---
ROUNDED CHARGE. PATIENT IS RESTING IN RECLINER. NO PAIN NOTED. NO COMMENTS, QUESTIONS, OR CONCERNS. CALL LIGHT IN REACH.
--- NOTE | 2017-12-23 21:00 | NUR ---
PATIENT RESTING IN CHAIR WATCHING TV. ASSESSMENT COMPLETED. PATIENT RATES PAIN AT REST 2/10 AND 7/10 WITH MOVEMENT. PRN PAIN MEDICAITON GIVEN. PATIENTS BLOOD PRESSURE WNL. PATIENT STATED SHE WAS NOT READY FOR BED AND WOULD CALL WHEN SHE WAS. TEDHOSE, SCDS, AND HEEL PROTECTORS IN PLACE. CRYO APPLIED TO LEFT KNEE, ICE SUFFICIENT. PATIENT DENIES NAUSEA. PATIENT EDUCATED ABOUT THE IMPORTANCE OF BOWEL CARE. PATIENT REFUSED 1 TAB AND STATED SHE WOULD TAKE 1 TAB. WILL CONTINUE TO EDUCATE. PATIENTS IV FLUSHES SLOW. FRESH ICE WATER GIVEN. AAOX3. DRAINGAGE NOTED, UNCHANGED FROM PREVIOUS SHIFT. PATIENT DENIES ANY OTHER NEEDS AT THIS TIME. CALL LIGHT WITHIN REACH.
--- NOTE | 2017-12-23 21:45 | NUR ---
PATIENT USED CALL LIGHT AND REQUESTED ASSISTANCE TO RESTROOM. PATIENT 1PA WITH FWW TO THE RESTROOM, WEAK AND STEADY GAIT. PATIENT ABLE TO VOID AND HAVE MEDIUM BOWEL MOVEMENT. PATIENT ASSISTED TO BED. SCDS, TEDHOSE, AND HEEL PROTECTORS IN PLACE. PATIENT RATES PAIN 7/10 WITH MOVEMENT. CYRO APPLIED TO LEFT KNEE, ICE SUFFICIENT. PATIENT DENIES NAUSEA. PATIENT DENIES ANY OTHER NEEDS AT THIS TIME. CALL LIGHT WITHIN REACH. AAOX3.
--- NOTE | 2017-12-24 00:32 | NUR ---
PATIENT RESTING IN BED WITH EYES CLOSED. PATIENTS BREATHING IS EVEN AND UNLABORED, RR 20. SCDS, TEDHOSE, HEEL PROTECTORS IN PLACE. CRYO APPLIED TO LEFT KNEE, ICE SUFFICIENT. CALL LIGHT WITHIN REACH.
--- NOTE | 2017-12-24 01:22 | NUR ---
PATIENT USED CALL LIGHT AND REQUSTED ASSISTANCE TO THE RESTROOM. PATIENT ASSISTED TO THE RESTROOM, 1PA WITH FWW. PATIENT RATES PAIN WITH AMBULATION 02/16. PATIENT ABLE TO VOID, YELLOW URINE. PATIENT ASSISTED BACK INTO BED. PRN PAIN MEDICATION GIVEN PER PATIENT REQUEST. SCDS, TEDHOSE, AND HEEL PROTECTORS IN PLACE. CRYO APPLIED TO LEFT KNEE, ICE SUFFICIENT. FRESH WATER GIVEN. PATIENT DENIES ANY OTHER NEEDS. CALL LIGHT WITHIN REACH. AAOX3.
--- NOTE | 2017-12-24 03:19 | NUR ---
PATIENT RESTING IN BED WITH EYES CLOSED. BREATHING EVEN AND UNLABORED, RR 18. SCDS, TEDHOSE, AND HEEL PROTECTORS IN PLACE. CRYO APPLIED TO LEFT KNEE, ICE SUFFICIENT. CALL LIGHT WITHIN REACH.
--- NOTE | 2017-12-24 04:09 | NUR ---
PATIENT USED CALL LIGHT AND REQUESTED ASSISTANCE TO THE RESTROOM. PATIENT ASSISTED A SBA W/FWW. PATIENT ABLE TO VOID. PATIENT IS PAINFUL WITH AMBULATION, PATIENT STATES RELIEF WHEN BACK IN BED. FRESH WATER GIVEN. PATIENT DENIES NAUSEA. SCDS, TEDHOSE, AND HEEL PRTOECTORS IN PLACE. AAOX3. CRYO APPLIED TO LEFT KNEE, ICE SUFFICIENT. PATIENT DENIES ANY OTHER NEEDS AT THIS TIME. CALL LIGHT WITHIN REACH.
--- NOTE | 2017-12-24 05:04 | NUR ---
PATIENT RESTED WELL THROUGHOUT NIGHT. PATIENT ON RA. PATIENT SBA WITH FWW WHEN AMBULATING. REGULAR DIET. MEDIUM BOWEL MOVMENT 12/23/17. PATIENT SL IN RIGHT FOREARM. PRN PAIN MEDICATION X2. NO NAUSEA NOTED. SCDS, TEDHOSE, AND HEEL PROTECTOR IN PLACE. CRYO APPLIED TO LEFT KNEE. DRAINAGE NOTED, UNCHANGED FROM PREVIOUS SHIFT. PATIENTS IV FLUSHES SLOW. PATIENT SEEING PT AND OT. AAOX3.
--- NOTE | 2017-12-24 06:19 | NUR ---
PATIENT UP TO RESTROOM, SBA WITH FWW. PATIENT TOLERATED WELL. PATIENT ASSISTED TO RECLINER. SCDS, TEDHOSE, HEEL PROTECTORS IN PLACE. CRYO APPLIED TO LEFT KNEE, ICE SUFFICIENT. PATIENT RATES 2/10 PAIN IN RECLINER. PATIENT REQUESTS PAIN MEDICATION BEFORE PT. COFFEE GIVEN PER PATIENT REQUEST. PATIENT DENIES ANY OTHER NEEDS AT THIS TIME. CALL LIGHT WITHIN REACH.
--- NOTE | 2017-12-24 06:39 | NUR ---
PATIENT RESTED WELL THROUGHOUT NIGHT. PATIENT ON RA. PATIENT SBA WITH FWW WHEN AMBULATING. REGULAR DIET. MEDIUM BOWEL MOVMENT 12/23/17. PATIENT SL IN RIGHT FOREARM. PRN PAIN MEDICATION X2. NO NAUSEA NOTED. SCDS, TEDHOSE, AND HEEL PROTECTOR IN PLACE. CRYO APPLIED TO LEFT KNEE. DRAINAGE ON DRESSING NOTED, UNCHANGED FROM PREVIOUS SHIFT. PATIENTS IV FLUSHES SLOW. PATIENT SEEING PT AND OT. AAOX3. SCOPE PATCH BEHIND LEFT EAR.
--- NOTE | 2017-12-24 07:15 | NUR ---
REPORT RECEIVED FROM SN BARRETO AND ADELINA RAMON. PT DECLINED PAIN MEDS. SITTING UP IN CHAIR WITH LEGS ELEVATED.
[2017-12-24] MEDS ORDERED: OXYCODONE HCL5 MG PO (07:20)
[2017-12-24] MEDS ORDERED: NEURONTIN300 MG PO (07:20)
[2017-12-24] MEDS ORDERED: MILK OF MA400 MG/5 M PO (07:21)
[2017-12-24] MEDS ORDERED: MIRALAX17 GM PO (07:21)
[2017-12-24] MEDS ORDERED: LISINOPRIL20 MG PO (09:55)
[2017-12-24] MEDS ORDERED: NORVASC5 MG PO (09:55)
--- NOTE | 2017-12-24 10:07 | NUR ---
AM MEDS ADMINISTERED. IV REMOVED WNL. HOME BP CUFF USED. SIMILAR READING TO HOSPITAL RADIAL CUFF ON LEFT WRIST. DR MINAYA NOTIFIED. PT READY TO DC. SITTING UP IN CHAIR WATCHING TV.
--- NOTE | 2017-12-24 10:36 | NUR ---
PT TO BE DC'D TODAY. SHE SEEMED VERY HAPPY-BIG SMILE. THANKED ME FOR COMING BY, EXTENDED A BLESSING, WILL FOLLOW NEEDED
--- NOTE | 2017-12-24 10:55 | NUR ---
DC TEACHING GIVEN TO PT AND DAUGHTER. ALL QUESTIONS ANSWERED. VERBALIZED UNDERSTANDING. VS STABLE.
--- NOTE | 2017-12-24 13:13 | NUR ---
CALLED DOCTOR GARCIA OFFICE AND REQUESTED THAT THEY SEND A SCRIPT FOR PHYSICAL THERAPY TO [facility] FOR OUTPATIENT THERAPY. SENT OVER A FACE SHEET, OP REPORT, AND DISCHARGE SUMMARY TO [facility] FOR FOLLOW UP TREATMENT
--- NOTE | 2017-12-25 07:31 | DS ---
[facility] [address], [place] [address] Signed ADMISSION DATE: 12/21/2017 DISCHARGE DATE: 12/24/2017 ADMISSION DIAGNOSIS: Degenerative joint disease, left knee. DISCHARGE DIAGNOSIS: Degenerative joint disease, left knee. PROCEDURE PERFORMED DURING THIS HOSPITALIZATION: Left total knee arthroplasty. BRIEF HISTORY: Joshua is a 72-year-old female, who had undergone previous right total knee with excellent results and wished to proceed with the left. Risks, benefits, and alternatives were discussed with her and she elected to proceed. DESCRIPTION OF PROCEDURE: Once consent was obtained, she was taken to the operating room. After adequate anesthesia, placed on the operating room table. All downside pressure points well padded. She underwent the above-named procedure and tolerated this well. She was taken to recovery room and subsequently to orthopedic floor. She was placed on oral pain medication of oxycodone and gabapentin and one dose of steroids. She did well with this. She was seen by Physical Therapy, able to ambulate up and down the hallway, up and down stairs, and get herself in and out of bed safely. She had good pain control, although she said it was not as good as her last surgery. She will be discharged home with the above medications. She will follow up with me in 10 days as previously scheduled. Josey Alberto MD BA/ANGELES /[id number] Electronically Signed By: JOSEY ALBERTO MD 12/25/17 0731 PATIENT NAME: JOSHUA LEWIS DISCHARGE SUMMARY DATE OF : 49 REPORT #: [id number] PHYSICIAN: JOSEY ALBERTO MD PCP: JOSE M MCLEAN MD REPORT IS CONFIDENTIAL AND NOT TO BE RELEASED WITHOUT AUTHORIZATION [address] [address] Signed Copies: ~ Electronically Signed By: JOSEY ALBERTO MD 12/25/17 0731 PATIENT NAME: JOSHUA LEWIS DISCHARGE SUMMARY DATE OF : 49 REPORT #: [id number] PHYSICIAN: JOSEY ALBERTO MD PCP: JOSE M MCLEAN MD REPORT IS CONFIDENTIAL AND NOT TO BE RELEASED WITHOUT AUTHORIZATION
--- NOTE | 2017-12-28 10:47 | NUR ---
FAXED PT AND OT NOTES TO [facility].
== END 2017-12-24 11:20 | disposition home or self-care (01) | DRG 470 ==
LOC: DS 06:55 → MS 10:37 → DS 10:37 → MS 12-24 11:20
PROVIDERS: ADMIT Specialist
PROC: 8E0YXBZ Computer Assisted Procedure of Lower Extremity (ICD-10-PCS; 2017-12-21)
PROC: 3E0T3BZ Introduction of Anesthetic Agent into Peripheral Nerves and Plexi, Percutaneous Approach (ICD-10-PCS; 2017-12-21)
PROC: 0SRD0J9 Replacement of Left Knee Joint with Synthetic Substitute, Cemented, Open Approach (ICD-10-PCS; principal; 2017-12-21 09:00)
DX: M17.12 Unilateral primary osteoarthritis, left knee (principal); Z68.42 Body mass index [BMI] 45.0-49.9, adult; G89.29 Other chronic pain; E66.01 Morbid (severe) obesity due to excess calories; K21.9 Gastro-esophageal reflux disease without esophagitis; I16.0 Hypertensive urgency; I10 Essential (primary) hypertension; R39.15 Urgency of urination; G89.18 Other acute postprocedural pain; Z96.651 Presence of right artificial knee joint; Z86.39 Personal history of other endocrine, nutritional and metabolic disease; Z79.899 Other long term (current) drug therapy; Z88.1 Allergy status to other antibiotic agents; Z88.0 Allergy status to penicillin; Z88.8 Allergy status to other drugs, medicaments and biological substances
CPT/HCPCS: 01402; 36415; 64447; 76942; 80048; 85025; 94762; 97110; 97116; 97161; C1713; C1776; G8978; G8979; J0735; J1100; J1885; J2250; J2274; J2405; J2704; J3010; J3370; J7050; J7120

== ENCOUNTER 2018-12-28 09:56 | Inpatient (IN) | payer MEDICARE ==
[~2018-12-28] VITALS: Ht 152.4 cm; Wt 97.2 kg
[~2018-12-28 09:56] MED LIST changes: +MILK OF MA400 MG/5 M PO; +MIRALAX17 GM PO; +NARCAN4 MG NAS; +NEURONTIN300 MG PO; +NORVASC5 MG PO
--- NOTE | 2018-12-28 12:00 | NUR ---
pt arrived to room 110 at this time for direct admit. pt is alert and oriented. she reports no nausea at this time, she said that if she tried to drink anything she would have emesis. reports pain is tolerated.
[2018-12-28] MEDS ORDERED: LISINOPRIL20 MG PO (12:55)
--- NOTE | 2018-12-28 13:15 | NUR ---
PT TO FLOOR TO ROOM 110 AT 1150. DAUGHTER AT BEDSIDE. DR. WILLIS HAS BEEN IN TO SEE PT. ADELINA SIMENTAL ATTEMPTED IV START TO RIGHT HAND, RIGHT FOREARM, UNSUCCESSFUL. ADELINA RODRIGUEZ ATTEMPTED IV START TO RIGHT UPPER ARM X 2, UNSUCCESSFUL.
--- NOTE | 2018-12-28 14:21 | NUR ---
pt back from xray. tolerating clear liquids
--- NOTE | 2018-12-28 15:10 | NUR ---
PATIENT IN BED WATCHING TV. CALL LIGHT IN REACH. NO FURTHER NEEDS AT THIS TIME.
[2018-12-28] MEDS ORDERED: IMODIUM A-D2 M2 PO (15:19)
--- NOTE | 2018-12-28 15:20 | NUR ---
MED REC COMPLETE
--- NOTE | 2018-12-28 16:46 | NUR ---
PT TOLERATED ICE WATER AND BEEF BROTH, IS NOW EATING JELLO. DENIES NAUSES, DENIES ABDOMINAL PAIN. PERSONAL SUPPLIES AND CALL LIGHT IN REACH.
--- NOTE | 2018-12-28 18:08 | NUR ---
PT DIRECT ADMITTED TO FLOOR THIS SHIFT. PLAN IS FOR PT TO HAVE SURGERY TOMORROW, PER DR. WILLIS. PT IS ON CLEAR LIQUIDS, AND HAS TOLERATED THESE WITH NO NAUSEA, EMESIS, OR C/O ABDOMINAL PAIN. PT TO BE NPO AFTER MIDNIGHT. PT UP WITH STANDBY ASSIST USING CANE. PT ALERT, ORIENTED X 4. DAUGHTER OF PT IN ROOM MUCH OF SHIFT, WISHES TO BE KEPT UP TO DATE REGARDING TIME OF SURGERY TOMORROW, DAUGHTER'S NAME AND NUMBER ON WHITE BOARD. PT RECIEVED 1 LITER LR BOLUS, NOW RECIEVING D5LR @ 85ML/HR MAINTENANCE FLUIDS. RECIEVED MAGNESIUM 2 GM IV X 1, IS RECIEVING FIRST 20 MEQ POTASSIUM CHLORIDE IV INFUSION, WILL RECIEVE ONE MORE AFTER THIS ONE IS COMPLETE. URINE OUTPUT HAS BEEN QUANTITY SUFFICIENT.
--- NOTE | 2018-12-28 18:17 | NUR ---
PATIENT UP TO BATHROOM, 1PA CANE. CALL LIGHT IN REACH. NO FURTHER NEEDS AT THIS TIME.
--- NOTE | 2018-12-28 18:22 | NUR ---
PATIENT BACK TO BED, 1PA CANE. FRESH WATER GIVEN. CALL LIGHT IN REACH. NO FURTHER NEEDS AT THIS TIME.
--- NOTE | 2018-12-28 19:04 | NUR ---
IN ROOM FOR REPORT, PT IS AWAKE IN BED AND DENIES NEEDS AT THIS TIME. CALL LIGHT IS WITHIN REACH.
--- NOTE | 2018-12-28 19:05 | NUR ---
CHARGE NURSE ROUNDS. PT IN BED, VISITED WITH NURSES. DENIES NEEDS.
--- NOTE | 2018-12-28 21:18 | NUR ---
ASSESSED PT AND ADMINISTERED EVENING MEDICATIONS. PT STATES THAT HER PAIN COMES AND GOES. SHE DENIES PAIN AT THIS TIME AND HAS SOME HEART BURN, PEPCID ADMINISTERED. SHE IS COMFORTABLE AND DENIES NEEDS AT THIS TIME. CALL LIGHT IS WITHIN REACH.
--- NOTE | 2018-12-28 22:18 | NUR ---
ASSISTED PT TO THE RESTROOM SBA WITH CANE AND BACK TO BED. IV ABX ADMINISTERED. PT DENIES FURTHER NEEDS. CALL LIGHT IS WITHIN REACH.
--- NOTE | 2018-12-28 23:48 | NUR ---
PT IS RESTING WITH EYES CLOSED, RESPIRATIONS ARE EVEN AND NONLABORED. CALL LIGHT IS WITHIN REACH.
--- NOTE | 2018-12-29 01:12 | NUR ---
PT IS RESTING WITH EYES CLOSED, RESPIRATIONS ARE EVEN AND NONLABORED. CALL LIGHT IS WITHIN REACH.
--- NOTE | 2018-12-29 02:21 | NUR ---
VS & I&O'S ENTERED AND STARTED PREOP CHECKLIST. PT DENIES FURTHER NEEDS AT THIS TIME. CALL LIGHT IS CLOSE.
--- NOTE | 2018-12-29 03:03 | NUR ---
PT CALLED REPORTING PAIN 11/17. LENA UP TORADOL AND NOTICED THE PT HAS AN ALLERGY TO IBUPROFEN, SHE SAYS HER FACE SWELLS. ASSISTED PT TO THE RESTROOM AND WILL VERIFY WITH PHARMACY WHETHER IT IS SAFE TO GIVE.
--- NOTE | 2018-12-29 03:35 | NUR ---
SPOKE WITH TELE PHARMACIST RE: TORADOL AND IBUPROFEN ALLERGY. SHE AGREED THAT IT IS CONTRAINDICATED. SPOKE WITH PT ABOUT THIS AND SHE STATES THAT HER PAIN HAS DECREASED TO A 2-3 AT THIS TIME AND IS OKAY WITHOUT TAKING ANY PAIN MEDICATIONS AT THIS TIME. WARM BLANKET PROVIDED AND PT DENIES FURTHER NEEDS. CALL LIGHT IS WITHIN REACH. WILL PASS ALONG TO DAYSHIFT TO OBTAIN ANOTHER ORDER FOR PAIN MEDICINE.
--- NOTE | 2018-12-29 05:16 | NUR ---
PT IS AWAKE IN BED, SHE DENIES PAIN AND ANY NEEDS AT THIS TIME. NEW ORAL SWABS GIVEN TO PT AND VS ENTERED. CALL LIGHT IS CLOSE.
--- NOTE | 2018-12-29 05:17 | NUR ---
PT AMBULATES SBA WITH CANE. SHE HAS D5LR INFUSING AT 85MLS/HR. SHE WAS ON CLEAR LIQUIDS BEFORE MIDNIGHT AND IS NPO. PT STATES IV FLUIDS HAVE HELPED HER FEEL BETTER AND SHE DENIES NAUSEA. SHE REPORTS PAIN COMING AND GOING AND NO PAIN MEDS HAVE BEEN ADMINISTERED. PER REPORT SURGERY IS SCHEDULED FOR 11AM. PREOP CHECKLIST IS STARTED. UO IS WNL.
--- NOTE | 2018-12-29 05:27 | NUR ---
DR WILLIS CALLED FOR AN UPDATE ON PT. NOTIFIED HIM OF NEG TROPONIN AND CONCERN ABOUT TORADOL AND IBUPROFEN ALLERGY. NEW ORDERS PLACED FOR MORPHINE TORBC. NO FURTHER ORDERS AT THIS TIME.
--- NOTE | 2018-12-29 06:17 | NUR ---
IN ROOM TO ADMINISTER ABX AND ASSISTED PT TO THE RECLINER. SHE DENIES FURTHER NEEDS. CALL LIGHT IS WITHIN REACH.
--- NOTE | 2018-12-29 07:15 | NUR ---
PT SITTING UP IN CHAIR, CALL LIGHT IN REACH. BEDSIDE REPORT RECEIEVED FROM ADELINA DAVID. PT A/O X4 WATCHING TV. PT DENIES NAUSEA/PAIN/NEEDS AT THIS TIME.
--- NOTE | 2018-12-29 08:54 | NUR ---
OFFERED WARM WASHCLOTH. PATIENT IS SITTING UP IN CHAIR. CALL LIGHT IN REACH. NO FURTHER NEEDS AT THIS TIME.
--- NOTE | 2018-12-29 10:03 | NUR ---
Pt back in bed from having hibiclense shower with assistance from LOLA Ritchie. Pt tolerated well. Pt assessment completed, preop LR with straight tubing at bedside. Pt refuses to remove dentures at this time even after educated on risk of damage and or aspiration on dentures. Attends in place as pt reports having some loose stool this morning. call light in reach. pt denies pain, nausea or sob and appears to be in no distress. Pt conversing with family at bedside. Oral lisinopril held at this time due to preop status.
--- NOTE | 2018-12-29 10:25 | NUR ---
REPORT GIVEN TO OR NURSE AND PT OFF FLOOR TO OR. PT DENIED HAVING ANY FURTHER CONCERNS OR REQUESTS REGARDING SX PRIOR TO DEPARTING.
--- NOTE | 2018-12-29 12:46 | NUR ---
12/29/18 [facility] Skyla Trejo 1235-PATIENT ARRIVED TO PACU ON 6L MASK REACTIVE TO VOICE EYES OPENING MOVING LEFT ARM. BP CUFF ADJUSTED ON RIGHT FOREARM ELEVATED READING. 4 LAP SITES TO ABDOMEN CDI CANDACE DRAIN SANGUINOUS DRAINAGE 50 MLS EMPTIED. BRIEFS ON. SR. 1245-PATIENT AROUSING VERY DROWSY DENIES PAIN OR NAUSEA. DOZES BACK TO SLEEP. REACHING FOR O2 MASK. 6L MASK IN PLACE. RR EVEN.
--- NOTE | 2018-12-29 13:03 | NUR ---
PT IN SURGERY. WILL CHECK BACK AGAIN
--- NOTE | 2018-12-29 13:42 | NUR ---
RETURNED TO ROOM FROM OR. PT IS SLEEPY BUT OPENS EYES AND RESPONDS TO NAME, IVF PATENT. MILD NAUSEA DENIES PAIN, SCOPE SITES INTACT. CANDACE PATENT WITH SMALL AMOUNT RED SERROUS FLUID. DAUGHTER IN ROOM. CALL LIGHT IN EASY REACH.
--- NOTE | 2018-12-29 14:22 | NUR ---
PATIENT IS RESTING IN BED. POST OP VITALS ARE DONE. CALL LIGHT IN REACH. NO FURTHER NEEDS AT THIS TIME.
--- NOTE | 2018-12-29 16:02 | NUR ---
PT RESTING SUPINE IN BED, EYES CLOSED AND RESPIRATIONS EVEN AND UNLABORED. PT ALERT TO VOICE AND REPORTS PAIN OF 4/10. PT REQUESTED AND RECEIVED PRN PO PERCOCET, SEE EMAR. CALL LIGHT AND H20 IN REACH. PT DENIES FURTHER NEEDS/CONCERNS.
--- NOTE | 2018-12-29 16:51 | EKG ---
[facility] [address] [facility] [place] [address] Signed Normal sinus rhythm Low voltage QRS Inferior infarct , age undetermined Possible Anterolateral infarct , age undetermined Abnormal ECG No previous ECGs available Confirmed by MUNIRA MINAYA MD ([id number]) on 12/29/2018 4:50:50 PM Electronically Signed By: MUNIRA MINAYA MD 12/29/18 1651 PATIENT NAME: JOSHUA LEWIS Electrocardiogram DATE OF : 49 PHYSICIAN: MUNIRA MINAYA MD REPORT #: [id number] REPORT IS CONFIDENTIAL AND NOT TO BE RELEASED WITHOUT AUTHORIZATION
--- NOTE | 2018-12-29 19:00 | NUR ---
PT REPORTS FEELING DIZZY, HOT ADN SWEATY AFTER AMBULATING TO BATHROOM. PT ALSO STEPPED ON HER IV TUBING PER GRAYSON DAVILA ON HER WAY TO THE BATHROOM WITH SBA FROM LOLA GALICIA. IV APPEARS TO BE INFILTRATED SO FLUIDS STOPPED PENDING NEW IV ACCESS. PT'S VSS AND HRR. DR WILLIS NOTIFIED OF PT'S S/SX'S AND VS'S. NO NEW ORDERS AT THIS TIME. PER MD PT SHOULD ATTEMPT TO REST MUCH POSSIBLE TONIGHT. REPORT TO ADELINA DAVID.
--- NOTE | 2018-12-29 19:05 | NUR ---
IN ROOM FOR REPORT, PT IS AWAKE IN BED BUT DROWSEY. SHE DENIES NEEDS AT THIS TIME. MARY KAY SAHU CALLED A CCU RN TO SEE ABOUT STARTING AN IV. CALL LIGHT IS CLOSE.
--- NOTE | 2018-12-29 21:03 | NUR ---
ATTEMPTED IV START, UNSUCCESSFUL. PT REQUESTED ROOM TEMPERATURE TO BE TURNED DOWN. NOTIFIED FILM COMPOSER OF NEED TO HAVE IV RESTARTED.
--- NOTE | 2018-12-29 22:00 | NUR ---
CELL MANAGER WAS ABLE TO START AN IV IN PT'S RIGHT HAND. D5LR WAS RESTARTED. PT DENIES DIZZINES AFTER EARLIER EPISODE BUT HAS NOT BEEN OUT OF BED SINCE. SHE REPORTS PAIN AT 6/10 PERCOCET WAS GIVEN. LAP SITES HAVE STERI STRIPS IN PLACE AND HAVE A SCANT AMOUNT OF DRIED BLOOD NOTED. CANDACE IS DRAINING SEROSANGUINOUS FLUID. REMOVED IV FROM LEFT FOREARM, CATH TIP INTACT, PT TOLERATED WELL AND GAUZE/TAPE APPLIED WITH PRESSURE. PLACE WARM PACK ON ARM D/T THE INFILTRATION. PT IS ON 1.5 L NC AND CPOX IS IN PLACE. PT DENIES FURTHER NEEDS AT THIS TIME. SHE IS EATING JELLO. CALL LIGHT IS WITHIN REACH.
--- NOTE | 2018-12-30 00:15 | NUR ---
PT IS RESTING WITH EYES CLOSED, RESPIRATIONS ARE EVEN AND NONLABORED ON 1.5L NC ANND CPOX AT 97%, TURNED 02 DOWN TO 1 LNC. CALL LIGHT IS WITHIN REACH.
--- NOTE | 2018-12-30 01:50 | NUR ---
PT WAS JUST UP TO THE RESTROOM WITH THE SOX ANALYST. SHE REPORTS SOME DIZZINESS BUT STATES IT WAS NOTHING LIKE HER EPISODE AFTER SURGERY YESTERDAY. SHE STATES HER PAIN IS UNDER CONTROL AT THIS TIME AND DENIES THE NEED FOR PAIN MEDICINE. SHE IS NOW ON RA AND MAINTAINING O2 SAT IN MID 90'S. SHE HAS FRESH ICEWATER AT BEDSIDE. HER LAP SITES ARE CDI WITH SCANT OLD DRAINAGE NOTED. CANDACE DRAIN WAS EMPTIED OF 15MLS SEROSANGUINOUS FLUID. PT DENIES NEEDS AT THIS TIME. CALL LIGHT IS CLOSE.
--- NOTE | 2018-12-30 03:35 | NUR ---
PT IS RESTING WITH EYES CLOSED, RESPIRATIONS ARE EVEN AND NONLABORED ON RA AND CPOX IS READING 93%. CALL LIGHT IS WITHIN REACH, IV IS INFUSING AND SCDS ARE ON.
--- NOTE | 2018-12-30 04:58 | NUR ---
PT IS RESTING WITH EYES CLOSED RESPIRATIONS ARE EVEN AND NONLABORED ON RA AND CPOX IS AT 93% IV IS INFUSING. CALL LIGHT IS WITHIN REACH.
--- NOTE | 2018-12-30 05:17 | NUR ---
PT SLEPT FOR A GOOD PART OF THE NIGHT. SHE HAS A NEW IV IN HER RIGHT HAND INFUSING D5LR AT 85MLS/HR. SHE STARTED THE NIGHT ON O2 AT 1.5 LNC AND IS NOW BACK TO RA WHILE SLEEPING WITH CPOX READING BETWEEN 93-95%. SHE AMBULATES 1PA WITH CANE. SHE IS ON A REGULAR DIET AND HAS TOLERATED CLEARS AND CRACKERS, NO NAUSEA. SHE HAS PERCOCET AVAILABLE FOR PAIN. SHE HAS SCD'S IN PLACE.
--- NOTE | 2018-12-30 05:59 | NUR ---
ASSISTED PT TO THE RESTROOM AND TO THE RECLINER. ABX INFUSING AND FRESH ICEWATER AT BEDSIDE. PT REPORTS PAIN AT A 2/10 AND DENIES NEEDS FOR PAIN MEDS AT THIS TIME. VS& I&O ENTERED. CALL LIGHT IS CLOSE.
--- NOTE | 2018-12-30 07:34 | NUR ---
PT SITTING UP IN CHAIR, HOLDING EMISIS BAG AND REPORTS FEELING QUEESY, PRN IV ZOFRAN ADMINISTERED PER PT REQUEST. CALL LIGHT AND H20 IN REACH. BEDSIDE REPORT WAS RECEIVED FROM ADELINA DAVID. PT DENIES FURTHER NEEDS/CONCERNS.
--- NOTE | 2018-12-30 09:39 | NUR ---
Pt sitting up in chair finishing breakfast. Pt denies nausea and was provided with menue to order lunch. Assessment completed and am meds administered. call light and h2o in reach. CANDACE drain only has small amount of clear looking s/s drainage. Pt denies furhter needs/concerns. family at bedside.
--- NOTE | 2018-12-30 11:23 | OR ---
[facility] [address], [place] [address] Signed DATE OF OPERATION: 12/29/2018 SURGEON: Zulema Willis MD PREOPERATIVE DIAGNOSES: 1. Acute calculous cholecystitis. 2. Morbid obesity. POSTOPERATIVE DIAGNOSES: Acute gangrenous cholecystitis. PROCEDURES PERFORMED: 1. Laparoscopic cholecystectomy with intraoperative cholangiogram, prolonged, complicated, difficult. 2. Surgeon-directed fluoroscopy. ANESTHESIA: General endotracheal; Zulema Hare CRNA; and local 10 mL of 0.25% Marcaine with epinephrine. INDICATION: This 73-year-old morbidly obese white woman who has had over two weeks of increasing abdominal pain. She is a patient of Dr. Douglass. Dr. Douglass evaluated her and had her undergo a gallbladder ultrasound as an outpatient yesterday. I was called from the Radiology Department noting that the gallbladder was distended, thickened, and with a single large gallstone, but marked tenderness on examination. She was directly admitted from the Radiology Department by me and found to have acute cholecystitis clinically and ultrasonographically. She has been fluid resuscitated, given intravenous antibiotics, and so forth and is now to undergo cholecystectomy preferably by laparoscopic approach. Her preoperative lab studies showed normal lipase and amylase, slightly elevated liver enzymes, normal bilirubin, and somewhat elevated white count of 12.2. FINDINGS: Gangrenous cholecystitis was noted. Although the patient was morbidly obese and the gallbladder impressively necrotic cholecystectomy was able to be performed by laparoscopic approach. No was prolonged, complicated, and difficult. Good identification of the cystic artery and cystic duct was accomplished. The cholangiogram showed no sign of impediment to flow from the biliary tree and no obvious gallstone. Conventional anatomy was noted. The liver had some fatty infiltration, but no sign of Electronically Signed By: ZULEMA WILLIS MD 12/30/18 1123 PATIENT NAME: JOSHUA LEWIS OPERATIVE REPORT DATE OF : 49 REPORT #: [id number] PHYSICIAN: ZULEMA WILLIS MD PCP: JOSE M DOUGALSS MD REPORT IS CONFIDENTIAL AND NOT TO BE RELEASED WITHOUT AUTHORIZATION [facility] [address], [place] [address] Signed cirrhotic changes. The operation was prolonged, complicated, difficult. A drain was placed in the subhepatic space as well. The gallbladder itself had gangrenous changes and a single large somewhat translucent gallstone wedged in the infundibulum. PROCEDURE IN DETAIL: The patient was brought to the operating room, given a general endotracheal anesthetic. Preoperative antibiotic Ancef had been given and was given in the operating room as well. Sequential compression device stockings used and heparin subcutaneously administered. Her very obese abdomen was prepared with a chlorhexidine solution and draped sterilely. She did have a low midline incision from the past. A supraumbilical incision was made. A small incisional hernia was noted in that area, mostly herniated properitoneal fat. The peritoneal cavity was entered and using a Kathrine cannula and an open Kathrine cannula technique, pneumoperitoneum was achieved to a level of 14 mmHg with carbon dioxide gas. Immediately noted was a gangrenous fundus of the gallbladder. Omental adhesions surrounded it. Three additional trocars were placed in usual configuration in the subxiphoid, right midclavicular, and right anterior axillary line. Not mentioned previously was palpation of the abdomen. After induction of anesthesia with a relaxed abdomen showing a palpable mass in the right subcostal area obviously corresponding to the gangrenous gallbladder. After the trocars were removed, the omental adhesions were gently freed from the gallbladder and using a laparoscopic decompression device, the gallbladder was decompressed. The flimsy wall of the gallbladder was gently grasped and elevated cephalad, and with a blunt dissection, the omentum freed from the remaining surface of the gallbladder. The gallbladder was retracted laterally and using blunt and electrocautery dissection, the triangle of Calot was dissected free ultimately identifying the dominant cystic artery and cystic duct. A try. The critical view of safety was well demonstrated and a clip was applied across gallbladder cystic duct junction. A transverse choledochotomy was made in the cystic duct. There was no egress of bile or stones upon retrograde milking of the cystic duct. Using an Clark type cholangiocatheter, intraoperative cholangiography was undertaken showing free flow of contrast in biliary tree with prompt emptying into the duodenum. Additional injection showed retrograde filling into the common hepatic duct, biliary radicles. A pancreatogram was also noted. Catheter was removed the cystic duct was then triply clipped and divided. Clips were then applied to the cystic artery and it two was divided. Using electrocautery, the gallbladder was dissected free in a retrograde fashion. Blunt dissection allowed for peeling of the gallbladder from an avascular plane. Ultimately, the gallbladder was excised completely and placed in an endobag and extracted through the infraumbilical port site without problem. The gallbladder was gangrenous in appearance externally and internally. A single translucent 1.5 cm multifaceted gallstones was noted and wedged in the infundibulum. Irrigation was Electronically Signed By: ZULEMA WILLIS MD 12/30/18 1123 PATIENT NAME: JOSHUA LEWIS OPERATIVE REPORT DATE OF : 49 REPORT #: [id number] PHYSICIAN: ZULEMA WILLIS MD PCP: JOSE M DOUGLASS MD REPORT IS CONFIDENTIAL AND NOT TO BE RELEASED WITHOUT AUTHORIZATION [facility] [address] [facility] [place], [place] [address] Signed undertaken in subhepatic space. There was some oozing of blood from the hepatic bed. Electrocautery was used for hemostasis. Two additionally provide hemostasis. Some Sydni hemostatic agent was applied to the raw surface. A 7 mm Patricio drain was placed in the subhepatic space, brought out from a right-sided trocar site. Excess irrigation fluid was suctioned free. Once hemostasis was assured. Trocars were then removed under direct visualization showing no sign of bleeding. The supraumbilical fascial incision was reapproximated with interrupted 0 Vicryl suture. All wounds were copiously irrigated with saline solution and skin closed with interrupted 3-0 Vicryl. Steri-Strips were applied. The patient was ultimately extubated and transferred to recovery in good condition having suffered no complication. The operation was prolonged, complicated, and difficult lasting three times longer than usual. MD KUSH Marroquin/IMELDAL /[id number] cc: Jose M Douglass MD Copies: JOSE M DOUGLASS MD ~ Electronically Signed By: ZULEMA WILLIS MD 12/30/18 1123 PATIENT NAME: JOSHUA LEWIS OPERATIVE REPORT DATE OF : 49 REPORT #: [id number] PHYSICIAN: ZULEMA WILLIS MD PCP: JOSE M DOUGLASS MD REPORT IS CONFIDENTIAL AND NOT TO BE RELEASED WITHOUT AUTHORIZATION
--- NOTE | 2018-12-30 11:23 | HP ---
[facility] [address] [place], [place] [address] Signed ADMISSION DATE: 12/28/2018 REASON FOR ADMISSION: Acute calculous cholecystitis. HISTORY OF PRESENT ILLNESS: This 73-year-old obese white woman is a patient of Dr. Douglass. She has had two weeks of poor oral intake and increasing upper abdominal pain. She was sent to the hospital today under the direction of Dr. Douglass to undergo a gallbladder ultrasound. Study was performed, which showed gallstones, gallbladder wall thickening, pericholecystic fluid and a positive Kennedy sign consistent with acute cholecystitis. I was called by the Radiology Department regarding her findings and had recommended direct admission to the hospital for further evaluation and care. The patient tells me that she has had upper abdominal pain for quite some time, only worsening in the past week or two. She had no associated nausea or vomiting with this. PAST MEDICAL HISTORY: Include bilateral knee replacement by Dr. Alberto. She was also known to have hypertension. MEDICATIONS: Include lisinopril 20 mg a day, milk of magnesia for constipation and multivitamin and oxybutynin 5 mg at bedtime. ALLERGIES: She has stated allergies to penicillin (childhood unknown real response) and "did not do well" with ketamine. She also lists ibuprofen and Cipro as allergies that left to be explored further. The patient is accompanied by her daughter, who helps provide her history. The patient herself is fully and mentally cognizant of her situation. REVIEW OF SYSTEMS: She denies any shortness of breath or chest pain. The pain is mostly in the right upper abdomen. She would like some coffee she says. She has had no hematemesis or blood per rectum. PHYSICAL EXAMINATION: GENERAL: This is a short, obese white woman with a BMI of 41.9, height 5 feet 0 inches, Electronically Signed By: ZULEMA WILLIS MD 12/30/18 1123 PATIENT NAME: JOSHUA LEWIS HISTORY AND PHYSICAL DATE OF : 49 REPORT #: [id number] PHYSICIAN: ZULEMA WILLIS MD PCP: JOSE M DOUGLASS MD REPORT IS CONFIDENTIAL AND NOT TO BE RELEASED WITHOUT AUTHORIZATION [facility] [address] [place], [place] [address] Signed and weight 97.25 kg. HEENT: Mucous membranes are slightly moist. Trachea is midline. NECK: She has no hoarseness. There is no carotid bruit. No cervical mass. CHEST: Shows normal breath sounds, though diminished in volume. HEART: Regular, I detect no murmur. ABDOMEN: Obese, but generally soft. There is tenderness in the right upper abdomen. No palpable mass. I see no ascites. EXTREMITIES: No clubbing, cyanosis, or edema, but are particularly obese in the upper arms and legs. Sequential compression device stockings were in place at this time. LABORATORY DATA: No labs had been obtained at this time. ASSESSMENT AND PLAN: I reviewed her ultrasound and also the report corresponding to it. She does have a thickened gallbladder wall and shadowing gallstone. Her symptoms over the past two weeks are likely related to acute calculous cholecystitis. She has appropriately been admitted for further evaluation and care. We will obtain a Chem profile, CBC, amylase, in addition a chest x-ray. She has had a bit of a cough. Additionally, EKG would be appropriate given her hypertension and anticipated plan for anesthesia. Discussed with her a potential plan for cholecystectomy preferred by laparoscopic approach. A booklet will be provided to her for more information. I would not anticipate operation today. Zulema Willis MD JM/MODL /[id number] cc: Dr. Rafat Copies: Electronically Signed By: ZULEMA WILLIS MD 12/30/18 1123 PATIENT NAME: JOSHUA LEWIS HISTORY AND PHYSICAL DATE OF : 49 REPORT #: [id number] PHYSICIAN: ZULEMA WILLIS MD PCP: JOSE M DOUGLASS MD REPORT IS CONFIDENTIAL AND NOT TO BE RELEASED WITHOUT AUTHORIZATION [facility] [address] [place] [address] Signed ~ Electronically Signed By: ZULEMA WILLIS MD 12/30/18 1123 PATIENT NAME: JOSHUA LEWIS HISTORY AND PHYSICAL DATE OF : 49 REPORT #: [id number] PHYSICIAN: ZULEMA WILLIS MD PCP: JOSE M DOUGLASS MD REPORT IS CONFIDENTIAL AND NOT TO BE RELEASED WITHOUT AUTHORIZATION
--- NOTE | 2018-12-30 11:35 | NUR ---
PT SITTING UP IN CHAIR, PT ASSISTED UP TO RESTROOM WITH SBA AND FWW ADN THEN AMBULATED IN REYES X1.5 LAP AROUND NURSES STATIONS WITH 1 PERSON SBA AND FWW. PT TOLERATED AMBULATION WELL. CALL LIGHT AND H2O IN REACH. PT REPORTS HEADACHE AND SOME MILD ABD ACHING SO PRN PO PERCOCET ADMINISTERED PER PT REQUEST.
--- NOTE | 2018-12-30 12:28 | NUR ---
ASKED SUDARSHAN THIS MORNING IF SHE WOULD LIKE TO TAKE A SHOWER AND SHE SAID NO. CHANGED HER BED LINENS.
--- NOTE | 2018-12-30 14:28 | NUR ---
Pt sitting up in chair, assessment completed, pm meds administered -see emar. call light and h2o in reach. Pt denies pain or sob and is satting 96% on RA. 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
--- NOTE | 2018-12-30 15:18 | NUR ---
PATIENT AND I WALKED 2 LAPS AROUND NURSES STATION. PATIENT USED WALKER.
--- NOTE | 2018-12-30 15:23 | NUR ---
DR. WILLIS IN TO SEE PATIENT. CANDACE DRAIN REMOVED, PATIENT TOLERATED WELL. PATIENT RATES ABDOMINAL PAIN CRAMPING 2-5/10. IV ZOFRAN GIVEN FOR "UPSET STOMACH" PLAN IS FOR PATIENT TO GO HOME TOMORROW.
--- NOTE | 2018-12-30 17:30 | NUR ---
PT SITTING UP IN BED CONVERSING ON PHONE, PM MED ADMINISTERED -SEE EMAR. PT DENIES NEEDS/CONCERNS AT THIS TIME. CALL LIGHT AND H20 IN REACH.
--- NOTE | 2018-12-30 19:44 | NUR ---
AWAKE, IN CHAIR, WATCHING TV. NO C/O PAIN
--- NOTE | 2018-12-30 20:57 | NUR ---
VITALS AND I&OS DONE AND CHARTED. BEDSIDE TABLE AND CALL LIGHT IN REACH. FRESH ICE WATER GIVEN. HELPED PT TO THE BATHROOM AND BACK TO BED WITH HER FWW.
--- NOTE | 2018-12-30 21:17 | NUR ---
COOP WITH ASSESSMENT, NO C/O ABD PAIN. LIAM, DENIES PASSING GAS. 4SS SITEN WITH OLD DRAINAGE, ALLEVYIN DRESSING ON R LOW ABD SITE WHERE CANDACE WAS DC'D. SHADOWING OVER DRESSING. ON ROOM AIR. PT AMBULATES IN ROOM W/O ASSIST/ OR MINIMUM OF ASSIST. TOLERATING WELL, DECLINES NEED FOR PAIN MED. SL PATENT.
--- NOTE | 2018-12-30 22:24 | NUR ---
ASSISTED PT TO THE RESTROOM SBA WITH CANE. SHE DENIES PAIND AND FURTHER NEEDS AT THIS TIME. CALL LIGHT IS WITHIN REACH.
--- NOTE | 2018-12-31 00:19 | NUR ---
ASSISTED PT FROM RESTROOM BACK TO BED. SHE DENIES NEEDS AT THIS TIME. CALL LIGHT IS WITHIN REACH.
--- NOTE | 2018-12-31 00:19 | NUR ---
up to br, voided, back to bed, tolerated well, no c/o pain. abd ss in place, denies passing gas, call light and fluids at bedside
--- NOTE | 2018-12-31 04:52 | NUR ---
CURRENTLY RESTING, EYES CLOSED, HAS DENIES ABD PAIN. ABD LARGE, TENDER, SS IN PLACE, RED PANNUS, CLEANSED. 1PA/FWW/INDEPENDEDT AT TIMES IN ROOM, VOIDING QS, TOLERATING REGULAR DIET, TRANSFERS SELF FROM CHAIR TO BED AND VISEVERSA. PT EXPECTS TO BE DC TODAY. CALL LIGHT AND FLUIDS AT BEDSIDE.
--- NOTE | 2018-12-31 07:06 | NUR ---
PT RESTING SUPINE IN BED EYES CLOSED AND RESPIRATIONS EVEN AND UNLABORED. CALL LIGHT AND H2O IN REACH. PT APPEARS TO BE SLEEPING COMFORTABLY. REPORT RECEIVED FROM ADELINA CISNEROS.
--- NOTE | 2018-12-31 09:36 | NUR ---
PT SITTING UP IN CHAIR VISITING WITH FAMILY AT BEDSIDE, CALL LIGHT AND H2O IN REACH. PT ASSESSMENT COMPLETED. NO NEEDS/CONCERNS VOICED. PT DENIES NAUSEA, PAIN OR SOB. PT STATES SHE IS PASSING GAS.
--- NOTE | 2018-12-31 10:20 | NUR ---
CALL LIGHT ANSWERED. PATIENT USING BATHROOM. PATIENT USES A CANE. PATIENT BACKS TO CHAIR. CALL LIGHT WITHIN REACH. NO OTHER NEEDS AT THIS TIME
--- NOTE | 2018-12-31 11:02 | NUR ---
AROUND 0830 THIS MORNING PATIENT TOOK A SHOWER. I STOOD BY IN CASE SHE NEEDED HELPED HER GET DRESSED.
--- NOTE | 2018-12-31 11:35 | NUR ---
PT SITTING UP IN CHAIR. DR WILLIS IN TO GO OVER DISCHARGE PLAN AND EDUCATION WITH PATIENT. PT VERBALIZED UNDERSTANDING. IV DC'D PER PT AND MD REQUEST. PT TOLERATED WELL AND PRESSURE DSG APPLIED. CALL LIGHT AND H20 IN REACH. PT STATES SHE HAS CALLED HER DAUGHTER AND UPDATED HER ON DISCHARGE. PT DENIOES FURTHER NEEDS/CONCERNS.
[2018-12-31] MEDS ORDERED: TYLENOL325 MG PO (11:46)
[2018-12-31] MEDS ORDERED: ACETAMINOPHEN325 M1 PO (11:47)
--- NOTE | 2018-12-31 13:08 | NUR ---
PT SITTING IN CHAIR, DRESSED AND MOSTLY ALERT. 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 EXTENDED A BLESSING, WILL FOLLOW NEEDED
--- NOTE | 2019-01-01 21:40 | DS ---
[facility] [address], [place] [address] Signed ADMISSION DATE: 12/28/2018 DISCHARGE DATE: 12/31/2018 REASON FOR ADMISSION: This morbidly obese 73-year-old white woman is a patient of Dr. Douglass, who has had two weeks of poor oral intake and increasing upper abdominal pain. She was sent to the hospital by Dr. Douglass for consideration of gallbladder ultrasound. This showed a markedly abnormal gallbladder with thickened nazario, multiple stones, and pericholecystic fluid with positive Kennedy sign. On that basis, she was directly admitted from radiology suite to my service for further evaluation and care. PERTINENT PHYSICAL EXAMINATION: GENERAL: Showed an obese short woman, BMI of 41.9, height 5 feet 0 inches, weight 97 kg. HEENT: Mucous membranes are slightly moist. Trachea midline. CHEST: Clear. HEART: Regular without murmur. ABDOMEN: Obese, but generally soft. There is tenderness in the right upper abdomen with guarding. No palpable mass. No ascites. LABORATORY STUDIES: Showed a white count of 12.5, a potassium of 3.1. HOSPITAL COURSE: She was admitted, given fluid resuscitation, intravenous antibiotics, parenteral pain medication as needed. She underwent laparoscopy, where she was noted to have a gangrenous gallbladder. It is quite impressively discolored purple, dark, but had not shown spontaneous rupture (yet). Decompression of the gallbladder was undertaken and omental adhesions taken down. Concern was maintained this may require an open procedure, but with diligence and care a laparoscopic approach was successful with laparoscopic cholecystectomy performed without problem. Cholangiogram was normal as well. A drain was placed in the subhepatic space. Postoperatively, she had a rather unremarkable recovery. She was certainly not able to be discharged the following day, but was maintained on intravenous antibiotics. By the day of discharge, she is ambulating well, tolerating a regular diet. The drain has been removed and had shown no evidence of bile drainage and she is doing well. DISCHARGE MEDICATIONS: Include Tylenol 325 to 650 mg p.o. q.4 hours as needed for pain #30. She will resume her usual medications, which include oxybutynin 5 mg h.s., multivitamin daily, Electronically Signed By: ZULEMA WILLIS MD 01/01/19 2140 PATIENT NAME: JOSHUA LEWIS DISCHARGE SUMMARY DATE OF : 49 REPORT #: [id number] PHYSICIAN: ZULEMA WILLIS MD PCP: JOSE M DOUGLASS MD REPORT IS CONFIDENTIAL AND NOT TO BE RELEASED WITHOUT AUTHORIZATION [address] [address] Signed lisinopril 20 mg daily, and loperamide 2 mg as needed for diarrhea. She does not say that she needs any Percocet pain medication and she is not discharged with that. DISCHARGE DIAGNOSES: 1. Severe acute cholecystitis with gangrenous changes, status post laparoscopic cholecystectomy with intraoperative cholangiogram and placement of drain. 2. Morbid obesity. 3. Hypertension. FOLLOWUP PLAN: She is to return to see me in approximately one month. She will return to the ongoing care of Dr. Douglass as well. MD KUSH Marroquin/IMELDAL /[id number] cc: Dr. Douglass Copies: ~ Electronically Signed By: ZULEMA WILLIS MD 01/01/19 2140 PATIENT NAME: JOSHUA LEWIS DISCHARGE SUMMARY DATE OF : 49 REPORT #: [id number] PHYSICIAN: ZULEMA WILLIS MD PCP: JOSE M DOUGLASS MD REPORT IS CONFIDENTIAL AND NOT TO BE RELEASED WITHOUT AUTHORIZATION
== END 2018-12-31 13:10 | disposition home or self-care (01) | DRG 418 ==
LOC: US 09:56 → MS 11:32
PROVIDERS: ADMIT Surgery
PROC: BF101ZZ Fluoroscopy of Bile Ducts using Low Osmolar Contrast (ICD-10-PCS; 2018-12-29)
PROC: 0FT44ZZ Resection of Gallbladder, Percutaneous Endoscopic Approach (ICD-10-PCS; principal; 2018-12-29 11:00)
DX: K80.00 Calculus of gallbladder with acute cholecystitis without obstruction (principal); Z68.41 Body mass index [BMI] 40.0-44.9, adult; K82.A1 Gangrene of gallbladder in cholecystitis; K76.0 Fatty (change of) liver, not elsewhere classified; E66.01 Morbid (severe) obesity due to excess calories; I10 Essential (primary) hypertension; Z79.899 Other long term (current) drug therapy; Z96.653 Presence of artificial knee joint, bilateral; Z88.1 Allergy status to other antibiotic agents; Z88.0 Allergy status to penicillin; Z88.8 Allergy status to other drugs, medicaments and biological substances
CPT/HCPCS: 00790; 36415; 71046; 74300; 76705; 80053; 82150; 83690; 83735; 84484; 85025; 93005; 93010; 94762; J0330; J0690; J1100; J1644; J1885; J2250; J2405; J2704; J2765; J3010; J3475; J3480; J7060; J7120; Q9967

== ENCOUNTER 2019-05-11 07:24 | Emergency (ER) | payer MEDICARE, OTHER ==
[~2019-05-11] VITALS: Ht 152.4 cm; Wt 99.8 kg
[~2019-05-11 07:24] MED LIST changes: +ACETAMINOPHEN325 M1 PO; +IMODIUM A-D2 M2 PO
[2019-05-11] MEDS ORDERED: PEPCID20 MG PO (07:48)
[2019-05-11] MEDS ORDERED: CYCLOBENZAPRINE10 MG PO (07:49)
== END 2019-05-11 08:04 | disposition home or self-care (01) ==
LOC: ED 07:24
DX: S39.012A Strain of muscle, fascia and tendon of lower back, initial encounter (principal); I10 Essential (primary) hypertension; Z88.0 Allergy status to penicillin; Z88.1 Allergy status to other antibiotic agents; Z88.2 Allergy status to sulfonamides; Z88.3 Allergy status to other anti-infective agents; Z88.8 Allergy status to other drugs, medicaments and biological substances; Z79.899 Other long term (current) drug therapy; X50.1XXA Overexertion from prolonged static or awkward postures, initial encounter
CPT/HCPCS: 99283

== ENCOUNTER 2024-12-08 10:52 | Emergency (ER) | payer MEDICARE ==
[~2024-12-08] VITALS: Ht 149.9 cm; Wt 93.0 kg
[~2024-12-08 10:52] MED LIST changes: +ACETAMINOPHEN500 MG PO; +COREG12.5 MG PO; +CYCLOBENZAPRINE10 MG PO; +HYDROCODON-ACE1 EA10 PO; +PEPCID20 MG PO
[2024-12-08] MEDS ORDERED: ANASTROZOLE1 MG PO (11:09)
[2024-12-08] MEDS ORDERED: SODIUM CHLORIDE 0.9% 500 ML IV ONE (11:15)
[2024-12-08 11:34] LABS: BASOPHILS 0.4 % (0-2); EOSINOPHILS 3.5 % (0-6); HEMATOCRIT 37.5 % (35.0-50.0); HEMOGLOBIN 12.7 g/dL (12.0-18.0); LYMPHOCYTES 13.8 % (24-44); MCH 28.7 (27-36); MCHC 33.8 g/dl (30-36); MCV 84.9 fl (81-99); MONOCYTES 7.3 % (0-12); PLATELET COUNT 267 K/uL (140-440); RBC 4.42 M/ul (4.3-5.7); RDW 14.5 (10.5-15.0)
[2024-12-08 11:56] LABS: ALBUMIN 3.4 g/dL (3.4-5.0); ALBUMIN/GLOBULIN RATIO 0.79 (1.1-2.4); ANION GAP 11.7 (7-21); BILIRUBIN, TOTAL 0.5 mg/dL (0.2-1.0); BUN/CREATININE RATIO 15.21 (6.0-28.6); CALCIUM 8.8 mg/dL (8.5-10.1); CREATININE, SERUM 0.92 mg/dL (0.55-1.02); MAGNESIUM 1.7 mg/dL (1.8-2.4); POTASSIUM 3.7 mmol/L (3.5-5.1); PROTEIN, TOTAL 7.7 g/dL (6.4-8.2)
[2024-12-08] MEDS ORDERED: ASPIRIN 81 MG CHEW PO ONE (12:15)
[2024-12-08] MEDS ORDERED: METOPROLOL TARTRATE 5 MG/5 ML VIAL IV SCH (13:45)
[2024-12-08 15:54] VITALS: BP 116/66
--- NOTE | 2024-12-09 12:43 | EKG ---
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 rate has increased BY 63 BPM Nonspecific T wave abnormality, worse in Inferior leads Nonspecific T wave abnormality now evident in Lateral leads Confirmed by Curtis Godoy DO ([id number]) on 12/09/2024 12:43:17 PM Electronically Signed By: CURTIS GODOY DO 12/09/24 1243 PATIENT NAME: JOSHUA LEWIS Electrocardiogram DATE OF : 49 PHYSICIAN: CURTIS GODOY DO REPORT #: [id number] REPORT IS CONFIDENTIAL AND NOT TO BE RELEASED WITHOUT AUTHORIZATION
== END 2024-12-08 15:54 | disposition short-term general hospital (02) ==
LOC: ED 10:52
PROVIDERS: Emergency Medicine
DX: I21.4 Non-ST elevation (NSTEMI) myocardial infarction (principal); I11.0 Hypertensive heart disease with heart failure; I50.9 Heart failure, unspecified; Z79.899 Other long term (current) drug therapy; Z88.6 Allergy status to analgesic agent; Z88.0 Allergy status to penicillin; Z88.1 Allergy status to other antibiotic agents; Z88.8 Allergy status to other drugs, medicaments and biological substances
CPT/HCPCS: 36415; 71045; 80053; 83735; 83880; 84443; 84484; 85025; 93005; 93010; 96374; 99285-25; A9270; J7040